=== PATIENT | male | born 1980 | race Caucasian/White ===

== ENCOUNTER → 2016-05-13 | Outpatient (CLI) | payer BC ==
--- NOTE | 2016-05-13 21:46 | PN ---
35-year-old male patient coming in for a compliancy check regarding his obstructive sleep apnea. He has severe MALISSA with an AHI of 38. He is very happy with the CPAP treatment. He is much improved and much more alert and awake during the day. No major hypersomnia and sleepiness for now. His Magnolia score is down to 6. Based on the compliance data on the CPAP machine, his CPAP use for more than 4 hours is around 50%. His average CPAP use is 4.4 hours per night and his leak factor is only at 10 L/min. His AHI while on treatment is down to 5.9. As such, there is some further room for improvement. Yet he is clinically better and he can advance his compliancy further. BP is 121/86, pulse 74, respirations 16, temperature 98.0, Magnolia at 6 and the saturation is at 96% on room air. GENERAL APPEARANCE: Calm, comfortable. HEENT: Short neck, crowding posterior pharynx. There is no goiter or neck mass. LUNGS: Clear to auscultation. HEART: Sounds are regular rate and rhythm. Normal S1, S2. ABDOMEN: Soft, nontender. No organomegaly. EXTREMITIES: No edema. No cyanosis, or clubbing. IMPRESSION: 1. Severe symptomatic obstructive sleep apnea with an AHI of 38, worse in a supine body position. The patient is on CPAP therapy at a pressure of 12 cm of water. 2. Hypersomnia, improving. 3. Severe nocturnal oxygen desaturation improved. 4. Obesity with a body mass index of 37. PLAN: 1. Encourage weight loss. 2. Encourage increasing CPAP compliance to an average of 5 to 6 hours per night if possible. 3. See me back in a year's time in follow-up.
== END | disposition home or self-care (01) ==
LOC: SLEEP 13:07
PROVIDERS: ATTEND Internal Medicine Critical Care Medicine
DX: G47.33 Obstructive sleep apnea (adult) (pediatric) (principal); G47.10 Hypersomnia, unspecified; E66.9 Obesity, unspecified; Z68.37 Body mass index [BMI] 37.0-37.9, adult

== ENCOUNTER → 2017-04-17 | Outpatient (CLI) | payer BC ==
--- NOTE | 2017-04-17 12:22 | CT ---
EXAMINATION TYPE: CT chest w con DATE OF EXAM: 04/17/2017 COMPARISON: 01/16/2016 and 07/17/2015 HISTORY: 36-year-old male Patient has no complaints at time of study. FOllow up study for known lung nodule. Lymphadenopathy. TECHNIQUE: Contiguous axial scanning of the chest after the administration of 100 mL of Omnipaque 300 . Coronal/sagittal reconstructions performed. CT DLP: 603.4mGycm. Automatic exposure control utilized for a dose reduction. FINDINGS: Heart normal size without pericardial effusion. Aorta normal caliber with conventional arch vessel branching anatomy. Redemonstrated subcarinal lymph node. This is currently measured on coronal series and compared to th e patient's prior exams. It measures 3.5 x 2.0 cm, coronal image 80 versus 3.5 x 1.9 cm on 01/16/2016 and 3.5 x 2.3 cm on 07/17/2015. Otherwise, no thoracic lymphadenopathy seen. Focal tree-in-bud infiltrate at the right middle lobe remains unchanged from 07/17/2015. No consolidat ion or pleural effusion. Visualized upper abdomen redemonstrates hypodense lesions within the left kidney stable to minimally larger measuring 3.6 cm versus 3.2 cm on 07/17/2015 most suggestive of cysts. Bones: No osseous destructive process. IMPRESSION: 1. Stable 3.5 x 2.0 cm subcarinal lymph node as compared to 07/17/2015. This suggests a benign, probab ly chronic post inflammatory etiology. 2. Stable focal tree-in-bud infiltrate right middle lobe probably chronic distal airway impaction. 3. No acute pulmonary process.
== END | disposition home or self-care (01) ==
LOC: RADCTMAIN 10:50
PROVIDERS: ATTEND Internal Medicine
DX: R59.0 Localized enlarged lymph nodes (principal); R91.8 Other nonspecific abnormal finding of lung field
CPT/HCPCS: 71260; Q9967

== ENCOUNTER → 2017-06-16 | Outpatient (CLI) | payer BC ==
--- NOTE | 2017-06-16 18:02 | PN ---
PROGRESS NOTE Brooks is 36 seeing me in followup regarding MALISSA treatment. The patient has severe MALISSA with an AHI of 38 and the patient is currently on CPAP pressure of 12 cm of water. He is coming in for annual check. He is utilizing his CPAP without any interruption. He is very compliant and is using his CPAP 24 out of 30 days for more than 4 hours. He has been averaging around 5.8 hours of CPAP use per night. His AHI while on treatment is down to 2.6. Leak factor is only at 13 L/minute. He has no complaints. His weight has been fluctuating although is up by around 18 pounds since his last evaluation. His treatment continues to be successful. His Russell Score is at 9. He is waking up refreshed and alert during the day. He has no specific complaints. He wants all of the supplies to be refilled and renewed. BP is 131/86, pulse 76, respirations 16, temp 98 saturation 93% on room air and weight is 284. Height is 5 feet 10 inches. General appearance, calm and comfortable. Head is atraumatic, normocephalic. Neck is short, supple. There is crowding of posterior pharynx. No goiter or neck masses. LUNGS: Clear to auscultation. Heart sounds regular rhythm. Normal S1, S2. No S3. No murmurs. Abdomen is soft, nontender. No organomegaly. EXTREMITIES: No edema. No cyanosis or clubbing. NEUROLOGIC: Alert and oriented x3. No focal neurological deficits. Psychiatric negative for anxiety or depression. IMPRESSION: 1. Severe obstructive sleep apnea, currently with an AHI of 38. Continues to be on CPAP with a pressure of 12 cm of water. 2. Obesity with interval weight gain. Currently he is weighing 284 with a BMI of 40.7. 3. Hypersomnia recovered. PLAN: 1. Renewal of the CPAP supplies. 2. Encourage weight loss. 3. Keep the same CPAP pressure as the treatment has remains successful despite his weight loss. See me back in a year's time in follow up or earlier if needed. MMODL / IJN: [id number] /
== END | disposition home or self-care (01) ==
LOC: SLEEP 15:12
PROVIDERS: ATTEND Internal Medicine Critical Care Medicine
DX: G47.33 Obstructive sleep apnea (adult) (pediatric) (principal); E66.9 Obesity, unspecified; G47.10 Hypersomnia, unspecified; Z68.41 Body mass index [BMI] 40.0-44.9, adult; Z99.89 Dependence on other enabling machines and devices

== ENCOUNTER → 2018-02-15 | Outpatient (CLI) | payer BC ==
--- NOTE | 2018-02-15 22:13 | CT ---
EXAMINATION TYPE: CT chest w con DATE OF EXAM: 02/15/2018 COMPARISON: Chest CT April 17, 2017 and older CTs back through July 17, 2015. HISTORY: Follow up for pulmonary nodule. CT DLP: 506.9 mGycm. Automated Exposure Control for Dose Reduction was Utilized. TECHNIQUE: CT scan of the thorax is performed following with IV Contrast, patient injected with 100m l mL of Isovue 300. FINDINGS: LUNGS: Stable tree in bud infiltrate right middle lobe there are axial image 37 not significantly barry nged from July 18, 2015 study. There is additional linear scarring redemonstrated inferior to this up to level of diaphragm. No new suspicious nodules or masses are present. There is no pleural effusi on or pneumothorax seen bilaterally. The tracheobronchial tree is patent. MEDIASTINUM: There are no new greater than 1 cm hilar or mediastinal lymph nodes. There is enlarged s ubcarinal lymph node measuring 1.8 x 1.5 cm axial image 28 stable or slightly less prominent from janene or exams. No cardiomegaly or pericardial effusion is seen. OTHER: Simple appearing cysts upper pole of the posterior left kidney are redemonstrated. Liver remai ns low dense suggesting fatty infiltration. IMPRESSION: Overall no significant change or progression from June 2015 study suggests postinflamma tory or benign etiology.
== END | disposition home or self-care (01) ==
LOC: RADCTMAIN 16:55
PROVIDERS: ATTEND Internal Medicine
DX: R91.1 Solitary pulmonary nodule (principal)
CPT/HCPCS: 71260; Q9967

== ENCOUNTER 2021-05-27 03:34 | Inpatient (IN) | payer BC ==
[2021-05-27] MEDS ORDERED: IPRATROPIUM-ALBUTEROL 3 ML NEB INHALATION STA ×2 (03:45→04:53)
--- NOTE | 2021-05-27 03:46 | ED ---
SOB HPI - General Chief Complaint: Shortness of Breath Stated Complaint: SOB Time Seen by Provider: 05/27/21 03:35 Source: patient, RN notes reviewed, old records reviewed Mode of arrival: ambulatory Limitations: no limitations - History of Present Illness Initial Comments: This is a 40-year-old male DF for evaluation. Patient does for evaluation of se jose luis shortness of breath significant shortness of breath especially with movement. Patient was recently told he had bronchitis and about a month ago patient did have coronavirus. Patient has not been complaining of any chest pain. Patient does have high blood pressure but is been off his medication for greater than a year 2 MD Complaint: shortness of breath, anxiety -: hour(s) (Significantly much worse tonight), week(s) Severity: moderate, severe Severity scale (1-10): 10 (Tonight became a 10) Consistency: constant Improves With: rest Worsens With: exertion, movement Known History Of: other (Hypertension) Context: recent URI (2 weeks ago told he has bronchitis), recent illness (Does have recent diagnosis of coronavirus) Associated Symptoms: cough Treatments Prior to Arrival: none - Related Data Previous Rx's Medication Instructions Recorded Losartan [Cozaar] 50 mg PO DAILY 30 Days tab 01/17/16 Omeprazole [PriLOSEC] 40 mg PO DAILY #60 capsule. 01/17/16 amLODIPine [Norvasc] 10 mg PO DAILY #30 tablet 01/17/16 Allergies Allergy/AdvReac Type Severity Reaction Status Date / Time No Known Allergies Allergy Verified 05/27/21 03:38 Review of Systems ROS Statement: Those systems with pertinent positive or pertinent negative responses have been documented in the HPI. ROS Other: All systems not noted in ROS Statement are negative. Past Medical History Past Medical History: GERD/Reflux, Hypertension Additional Past Medical History / Comment(s): lymph node enlargement in chest, kidney cyst, hiatal hernia History of Any Multi-Drug Resistant Organisms: MRSA Date of last positivie culture/infection: 2007 MDRO Source:: shouler armpit and leg Past Surgical History: Ear Surgery, Tonsillectomy Additional Past Surgical History / Comment(s): mastoid bone, pe tubes, right foot Past Anesthesia/Blood Transfusion Reactions: No Reported Reaction Past Psychological History: No Psychological Hx Reported Smoking Status: Former smoker Past Alcohol Use History: Occasional Past Drug Use History: None Reported - Past Family History Mother Family Medical History: Asthma, GERD/Reflux, Hypertension, Skin Disorder Additional Family Medical History / Comment(s): psoriasis,hiatal hernia,enviromental triggered asthma Father History Unknown: Yes Additional Family Medical History / Comment(s): good health General Exam - General Exam Comments Initial Comments: significant diaphoresis, tripod positioning General appearance: alert, in no apparent distress, anxious, in distress Head exam: Present: atraumatic, normocephalic, normal inspection Eye exam: Present: normal appearance, PERRL, EOMI. Absent: scleral icterus, conjunctival injection, periorbital swelling ENT exam: Present: normal exam, mucous membranes moist Neck exam: Present: normal inspection. Absent: tenderness, meningismus, lymphadenopathy Respiratory exam: Present: respiratory distress, rales, accessory muscle use, decreased breath sounds, prolonged expiratory. Absent: wheezes, rhonchi, stridor Cardiovascular Exam: Present: regular rate, normal rhythm, normal heart sounds. Absent: systolic murmur, diastolic murmur, rubs, gallop, clicks GI/Abdominal exam: Present: soft, normal bowel sounds. Absent: distended, tenderness, guarding, rebound, rigid Extremities exam: Present: normal inspection, full ROM, normal capillary refill. Absent: tenderness, pedal edema, joint swelling, calf tenderness Back exam: Present: normal inspection Neurological exam: Present: alert, oriented X3, CN II-XII intact Psychiatric exam: Present: normal affect, normal mood Skin exam: Present: warm, dry, intact, normal color. Absent: rash Course Vital Signs 05/27/21 05/27/21 05/27/21 03:35 03:38 04:23 Temperature 97.8 F Pulse Rate 64 126 H Respiratory 18 24 24 Rate Blood Pressure 178/120 O2 Sat by Pulse 99 99 Oximetry 05/27/21 05/27/21 05/27/21 04:25 04:32 04:42 Temperature Pulse Rate 128 H 131 H 99 Respiratory 24 24 Rate Blood Pressure 173/139 129/112 O2 Sat by Pulse 97 98 Oximetry 05/27/21 05/27/21 05/27/21 04:46 05:00 05:18 Temperature Pulse Rate 98 91 91 Respiratory 22 20 Rate Blood Pressure 129/107 107/85 O2 Sat by Pulse 99 97 Oximetry 05/27/21 05/27/21 05:25 05:58 Temperature Pulse Rate 91 89 Respiratory 20 Rate Blood Pressure 112/90 O2 Sat by Pulse 95 Oximetry - Reevaluation(s) Reevaluation #1: 05/27/21 04:10 Medical record is reviewed Reevaluation #2: 05/27/21 06:16 Patient borderline being placed on BiPAP to watch closely with blood pressure control abrasion patient has improved dramatically Reevaluation #3: 05/27/21 06:16 Patient feeling much improved currently Reevaluation #4: 05/27/21 06:16 Patient informed of results and questions answered - Consultations Consultation #1: Spoke with [facility] regarding admission and they are agreeable Medical Decision Making - Medical Decision Making 40-year-old male hypertensive emergency and significant shortness of breath. Patient is near placing on BiPAP but with blood pressure control her breathing t reatments symptoms are significantly dramatically improved. Patient be admitted for cardiology observation blood pressure treatment echo and further evaluation - Lab Data Result diagrams: 05/27/21 04:17 05/27/21 04:17 Lab Results 05/27/21 05/27/21 05/27/21 Range/Units 04:17 04:17 04:17 WBC 7.3 (3.8-10.6) k/uL RBC 5.58 (4.30-5.90) m/uL Hgb 16.3 (13.0-17.5) gm/dL Hct 51.2 (39.0-53.0) % MCV 91.8 (80.0-100.0) fL MCH 29.3 (25.0-35.0) pg MCHC 31.9 (31.0-37.0) g/dL RDW 14.8 (11.5-15.5) % Plt Count 219 (150-450) k/uL MPV 9.5 Neutrophils % 68 % Lymphocytes % 23 % Monocytes % 5 % Eosinophils % 2 % Basophils % 1 % Neutrophils # 5.0 (1.3-7.7) k/uL Lymphocytes # 1.7 (1.0-4.8) k/uL Monocytes # 0.3 (0-1.0) k/uL Eosinophils # 0.2 (0-0.7) k/uL Basophils # 0.0 (0-0.2) k/uL Hypochromasia Slight PT 11.4 (9.0-12.0) sec INR 1.1 (<1.2) APTT 23.0 (22.0-30.0) sec Sodium 139 (137-145) mmol/L Potassium 4.5 (3.5-5.1) mmol/L Chloride 106 (98-107) mmol/L Carbon Dioxide 23 (22-30) mmol/L Anion Gap 10 mmol/L BUN 21 H (9-20) mg/dL Creatinine 1.27 H (0.66-1.25) mg/dL Est GFR (CKD-EPI)AfAm 81 (>60 ml/min/1.73 sqM) Est GFR (CKD-EPI)NonAf 70 (>60 ml/min/1.73 sqM) Glucose 136 H (74-99) mg/dL Plasma Lactic Acid Param (0.7-2.0) mmol/L Calcium 9.6 (8.4-10.2) mg/dL Magnesium 2.0 (1.6-2.3) mg/dL Total Bilirubin 1.3 (0.2-1.3) mg/dL AST 26 (17-59) U/L ALT 28 (4-49) U/L Alkaline Phosphatase 66 (38-126) U/L Troponin I (0.000-0.034) ng/mL NT-Pro-B Natriuret Pep pg/mL Total Protein 6.7 (6.3-8.2) g/dL Albumin 4.2 (3.5-5.0) g/dL Serum Alcohol <10 mg/dL 05/27/21 05/27/21 05/27/21 Range/Units 04:17 04:17 04:17 WBC (3.8-10.6) k/uL RBC (4.30-5.90) m/uL Hgb (13.0-17.5) gm/dL Hct (39.0-53.0) % MCV (80.0-100.0) fL MCH (25.0-35.0) pg MCHC (31.0-37.0) g/dL RDW (11.5-15.5) % Plt Count (150-450) k/uL MPV Neutrophils % % Lymphocytes % % Monocytes % % Eosinophils % % Basophils % % Neutrophils # (1.3-7.7) k/uL Lymphocytes # (1.0-4.8) k/uL Monocytes # (0-1.0) k/uL Eosinophils # (0-0.7) k/uL Basophils # (0-0.2) k/uL Hypochromasia PT (9.0-12.0) sec INR (<1.2) APTT (22.0-30.0) sec Sodium (137-145) mmol/L Potassium (3.5-5.1) mmol/L Chloride (98-107) mmol/L Carbon Dioxide (22-30) mmol/L Anion Gap mmol/L BUN (9-20) mg/dL Creatinine (0.66-1.25) mg/dL Est GFR (CKD-EPI)AfAm (>60 ml/min/1.73 sqM) Est GFR (CKD-EPI)NonAf (>60 ml/min/1.73 sqM) Glucose (74-99) mg/dL Plasma Lactic Acid Param 1.8 (0.7-2.0) mmol/L Calcium (8.4-10.2) mg/dL Magnesium (1.6-2.3) mg/dL Total Bilirubin (0.2-1.3) mg/dL AST (17-59) U/L ALT (4-49) U/L Alkaline Phosphatase (38-126) U/L Troponin I 0.033 (0.000-0.034) ng/mL NT-Pro-B Natriuret Pep 3430 pg/mL Total Protein (6.3-8.2) g/dL Albumin (3.5-5.0) g/dL Serum Alcohol mg/dL - EKG Data -: EKG Interpreted by Me (EKG sinus tachycardia 129 UT 157 QRS is having QTC 410) - Radiology Data Radiology results: report reviewed (Chest x-ray CT [facility] pelvis does show significant sent significant signs of CHF), image reviewed Critical Care Time Critical Care Time: Yes Total Critical Care Time: 31 Disposition Clinical Impression: Acute pulmonary edema, Congestive heart failure Disposition: ADMITTED IP TO THIS HOSP Condition: Fair Is patient prescribed a controlled substance at d/c from ED?: No Referrals: None,Stated [Primary Care Provider] - 1-2 days
[2021-05-27] MEDS ORDERED: ENALAPRILAT 1.25 MG/ML 1 ML VIAL IVP STA (04:27)
[2021-05-27] MEDS ORDERED: LABETALOL 5 MG/ML VIAL MDV IVP STA (04:27)
[2021-05-27 04:29] LABS: Basophils % (A) 1 %; Eosinophils # (A) 0.2 k/uL (0-0.7); Eosinophils % (A) 2 %; HCT 51.2 % (39.0-53.0); HGB 16.3 gm/dL (13.0-17.5); Hypochromasia Slight; Lymphocytes # (A) 1.7 k/uL (1.0-4.8); Lymphocytes % (A) 23 %; MCH 29.3 pg (25.0-35.0); MCHC 31.9 g/dL (31.0-37.0); MCV 91.8 fL (80.0-100.0); Mean Platelet Volume 9.5; Monocytes # (A) 0.3 k/uL (0-1.0); Monocytes % (A) 5 %; Neutrophils % (A) 68 %; Platelet Count 219 k/uL (150-450); RBC 5.58 m/uL (4.30-5.90); RDW 14.8 % (11.5-15.5); WBC 7.3 k/uL (3.8-10.6)
[2021-05-27 04:37] LABS: Potassium 4.5 mmol/L (3.5-5.1)
[2021-05-27 04:38] LABS: ALT 28 U/L (4-49); AST 26 U/L (17-59); African American GFR (CKD) 81 (>60 ml/min/1.73 sqM); Albumin 4.2 g/dL (3.5-5.0); Alcohol <10 mg/dL; Alkaline Phosphatase 66 U/L (38-126); Anion Gap 10 mmol/L; Blood Urea Nitrogen 21 mg/dL (9-20); Calcium 9.6 mg/dL (8.4-10.2); Carbon Dioxide 23 mmol/L (22-30); Chloride 106 mmol/L (98-107); Glucose 136 mg/dL (74-99); Non-African American GFR(CKD) 70 (>60 ml/min/1.73 sqM); Sodium 139 mmol/L (137-145); Total Bilirubin 1.3 mg/dL (0.2-1.3); Total Protein 6.7 g/dL (6.3-8.2)
[2021-05-27 04:41] LABS: INR 1.1 (<1.2)
[2021-05-27 04:42] LABS: Prothrombin Time 11.4 sec (9.0-12.0)
--- NOTE | 2021-05-27 04:46 | XR ---
EXAMINATION TYPE: XR chest 1V portable DATE OF EXAM: 05/27/2021 COMPARISON: 03/18/2019 HISTORY: Short of breath TECHNIQUE: FINDINGS: Single view Heart is enlarged. Lungs are clear. Diaphragm is normal. There are chest leads. There is no pleural e ffusion. IMPRESSION: There is cardiomegaly which appears new compared to old exam. No heart failure seen.
[2021-05-27] MEDS ORDERED: SODIUM CHLORIDE 0.9% 1,000 ML IV STA ×2 (04:59→06:08)
--- NOTE | 2021-05-27 05:23 | CT ---
EXAMINATION TYPE: CT angio chest DATE OF EXAM: 05/27/2021 COMPARISON: 01/16/2016 HISTORY: sob CT DLP: 2724 mGycm Automated exposure control for dose reduction was used. CONTRAST: Performed with IV Contrast, patient injected with 100 mL of Isovue 370. There are Three-D postprocessed images. There are bilateral pleural effusions. Heart is enlarged. There is some atelectasis at the lung bases . Thoracic aorta appears intact. There is no aneurysm or dissection. There is normal contrast opacifica tion of the pulmonary arteries. There are no filling defects. There are no hilar masses. There are ca lcified subcarinal lymph nodes. The thoracic spine is intact. There is no compression fracture. Sternum is intact. IMPRESSION: No evidence of pulmonary embolism. Moderate bilateral pleural effusions appear new compared to old ex am. There is small pericardial effusion that is new compared to old exam. Heart increased in size com pared to old exam. Old granulomatous disease. There is reflux of contrast into the inferior vena cava that is suggestive of congestive heart failure.
--- NOTE | 2021-05-27 05:33 | CT ---
EXAMINATION TYPE: CT abdomen pelvis w con DATE OF EXAM: 05/27/2021 COMPARISON: 07/10/2015 HISTORY: sob CT DLP: 2724 mGycm Automated exposure control for dose reduction was used. CONTRAST: Performed with IV Contrast, patient injected with 100 mL of Isovue 370. Images obtained from the diaphragm to the floor the pelvis with IV contrast. There is mild to moderate bilateral pleural effusions. There is some contrast reflux into the inferio r vena cava suggestive of some heart failure. Heart appears enlarged. There is small pericardial effu fide. Liver shows no focal defect. Gallbladder is intact. Spleen is intact. There is no pancreatic ma ss. The stomach is intact. There is no adrenal mass. Kidneys show satisfactory contrast opacification. There is no hydronephrosi s. There is conglomeration of cysts on the posterior left kidney and the largest measures 3 cm. There is no retroperitoneal adenopathy. Ureters are not dilated. There is some low density free fluid in t he pelvis. Urinary bladder is almost empty. There is no inguinal hernia. There is no free fluid in th e pelvis. There is some mild free fluid in the paracolic gutters. There is no mesenteric edema. There is no free air. There is no sign of a bowel obstruction. There i s no sign of thickened appendix. There is subcutaneous edema around the abdomen. The lumbar vertebra have normal alignment. Posterior element are intact. There is no compression frac ture. Bony pelvis is intact. IMPRESSION: There is mild ascites. This could be due to some chronic congestive heart failure. No sign of thicken ed appendix. Bilateral pleural effusions. Fluid appears new compared to old exams
[2021-05-27] MEDS: SODIUM CHLORIDE 0.9% 500 ML 500 ML IV STA ×2 (05:34→06:08)
[2021-05-27] MEDS ORDERED: SODIUM CHLORIDE 0.9% 1,000 ML IV SCH (06:15)
[2021-05-27] MEDS ORDERED: FUROSEMIDE 10 MG/ML 4 ML VIAL IV SCH (06:15)
[2021-05-27] MEDS ORDERED: METOPROLOL TARTRATE 25 MG TAB PO SCH (09:00)
[2021-05-27] MEDS: SACUBITRIL/VALSARTAN 24 MG-26 MG TABLET PO SCH ×2 (09:42→19:53)
--- NOTE | 2021-05-27 11:00 | ECHOF ---
Referral Reason:Heart Failure MEASUREMENTS -------- HEIGHT: 182.9 cm WEIGHT: 108.9 kg BP: RVIDd: 3.8 cm (< 3.3) IVSd: 1.3 cm (0.6 - 1.1) LVIDd: 5.4 cm (3.9 - 5.3) LVPWd: 2.3 cm (0.6 - 1.1) IVSs: 1.7 cm LVIDs: 5.0 cm LVPWs: 2.0 cm LA Diam: 5.3 cm (2.7 - 3.8) Ao Diam: 3.3 cm (2.0 - 3.7) AV Cusp: 1.6 cm (1.5 - 2.6) LA Diam: 4.9 cm (2.7 - 3.8) MV EXCURSION: 16.898 mm (> 18.000) MV EF SLOPE: 70 mm/s (70 - 150) EPSS: 1.5 cm RAP: 5.00 mmHg RVSP: 40.09 mmHg FINDINGS -------- Sinus rhythm. This was a technically adequate study. This was a techncally difficult study with suboptimal views, , Definity utilized for enhancement of images. The left ventricle is moderately dilated. There is severe global hypokinesis of LV . Overall left ventricular systolic function is severely impaired with, an EF < 20%. The right ventricle is normal in size. The left atrium is markedly dilated. The right atrial size is normal. xx ml of Lumason was utilized for enhancement of images. The aortic valve is trileaflet, and appears structurally normal. No aortic stenosis or regurgitation. Mild mitral regurgitation is present. [id number] tricuspid regurgitation present. There is mild pulmonary hypertension. The right ventricular systolic pressure, as measured by Doppler, is 40.09mmHg. There is no pulmonic regurgitation present. There is a small, generalized pericardial effusion present. CONCLUSIONS -------- 1. This was a techncally difficult study with suboptimal views, , Definity utilized for enhancement o f images. 2. The left ventricle is moderately dilated. 3. There is severe global hypokinesis of LV . 4. Overall left ventricular systolic function is severely impaired with, an EF < 20%. 5. The right ventricle is normal in size. 6. The left atrium is markedly dilated. 7. The right atrial size is normal. 8. xx ml of Lumason was utilized for enhancement of images. 9. The aortic valve is trileaflet, and appears structurally normal. No aortic stenosis or regurgitati on. 10. Mild mitral regurgitation is present. 11. Ixsb-[id number] tricuspid regurgitation present. 12. There is mild pulmonary hypertension. 13. The right ventricular systolic pressure, as measured by Doppler, is 40.09mmHg. 14. There is no pulmonic regurgitation present. 15. There is a small, generalized pericardial effusion present. HEAD OF TRANSPORT LOGISTICS: Shy Mead RDCS
[2021-05-27 11:23] VITALS: BMI 34.9
--- NOTE | 2021-05-27 12:16 | P.HPIM ---
History of Present Illness Patient is a pleasant 40-year-old male came in with compensative shortness of breath orthopnea and paroxysmal nocturnal dyspnea of which are going on for about a month. Patient shortness of breath progressively worsened. Patient had COVID-19 infection which is predominantly GI symptoms in mid February. Patient did not require hospital physician at the time. Patient is not vaccinated for COVID-19. Patient did have history of alcohol abuse in the past which he quit about any ago patient used to drink a 12 pack beer every day for many years. Does have family history of coronary artery disease, premature coronary artery disease in father and second degree relatives had coronary artery disease history as well. Patient baseline creatinine within normal limits present creatinine is 1.27. Patient was given Lasix, with a complete resolution of his shortness of breath. Patient had multiple imaging studies including CT angios the chest abdominal pelvic CT in ER which is significant for pulmonary edema and ascites. Echo was obtained today which showed EF of less than 20% with global hypokinesis. Patient also having cough without any sputum production REVIEW OF SYSTEMS: CONSTITUTIONAL: No fever, no malaise, no fatigue. HEENT: No recent visual problems or hearing problems. Denied any sore throat. CARDIOVASCULAR: No chest pain, no palpitations, no syncope. PULMONARY: , no hemoptysis. GASTROINTESTINAL: No diarrhea, no nausea, no vomiting, no abdominal pain. NEUROLOGICAL: No headaches, no weakness, no numbness. HEMATOLOGICAL: Denies any bleeding or petechiae. GENITOURINARY: Denies any burning micturition, frequency, or urgency. MUSCULOSKELETAL/RHEUMATOLOGICAL: Denies any joint pain, swelling, or any muscle pain. ENDOCRINE: Denies any polyuria or polydipsia. The rest of the 14-point review of systems is negative. PHYSICAL EXAMINATION: GENERAL: The patient is alert and oriented x3, not in any acute distress. Well developed, well nourished. HEENT: Pupils are round and equally reacting to light. EOMI. No scleral icterus. No conjunctival pallor. Normocephalic, atraumatic. No pharyngeal erythema. No thyromegaly. CARDIOVASCULAR: S1 and S2 present. No murmurs, rubs, or gallops. PULMONARY: Chest is clear to auscultation, no wheezing or crackles. ABDOMEN: Soft, nontender, nondistended, normoactive bowel sounds. No palpable organomegaly. MUSCULOSKELETAL: No joint swelling or deformity. EXTREMITIES: No cyanosis, clubbing, or pedal edema. NEUROLOGICAL: Gross neurological examination did not reveal any focal deficits. SKIN: No rashes. Assessment and plan -Congestive heart failure, new onset heart failure probably viral myocarditis and cardiomyopathy: Patient was given Lasix with improvement in symptoms patient was started on Entresto, Lasix was switched to oral patient has mildly elevated creatinine of 1.27 basic volley profile will be repeated again tomorrow monitor his input and output. Cardiology evaluated the patient. -Ascites secondary to congestive heart failure -Alcohol abuse history in the past he quit drinking alcohol -Acute renal failure probably prerenal azotemia from congestive heart failure and volume over load. This is expected to improve with Lasix -Gases visual reflux disease DVT prophylaxis: Subcutaneous heparin Past Medical History Past Medical History: GERD/Reflux, Hypertension Additional Past Medical History / Comment(s): lymph node enlargement in chest, kidney cyst, hiatal hernia History of Any Multi-Drug Resistant Organisms: MRSA Date of last positivie culture/infection: 2007 MDRO Source:: shouler armpit and leg Past Surgical History: Ear Surgery, Tonsillectomy Additional Past Surgical History / Comment(s): mastoid bone, pe tubes, right alecia t Past Anesthesia/Blood Transfusion Reactions: No Reported Reaction Past Psychological History: No Psychological Hx Reported Smoking Status: Never smoker Past Alcohol Use History: Occasional Past Drug Use History: None Reported - Past Family History Mother Family Medical History: Asthma, GERD/Reflux, Hypertension, Skin Disorder Additional Family Medical History / Comment(s): psoriasis,hiatal hernia,enviromental triggered asthma Father History Unknown: Yes Additional Family Medical History / Comment(s): good health Medications and Allergies Home Medications Medication Instructions Recorded Confirmed Type Sacubitril/Valsartan [Entresto 24 1 each PO BID #60 tablet 05/27/21 Rx mg-26 mg Tablet] Allergies Allergy/AdvReac Type Severity Reaction Status Date / Time No Known Allergies Allergy Verified 05/27/21 06:42 Physical Exam Vitals: Vital Signs Temp Pulse Pulse Resp BP BP Pulse Ox 05/27/21 08:00 92 18 138/105 97 05/27/21 07:12 92 18 114/72 05/27/21 06:59 92 18 114/97 98 02/28/22 05:58 89 20 112/90 95 05/27/21 05:25 91 05/27/21 05:18 91 05/27/21 05:00 91 20 107/85 97 05/27/21 04:46 98 22 129/107 99 05/27/21 04:42 99 24 129/112 98 05/27/21 04:32 131 H 05/27/21 04:25 128 H 24 173/139 97 05/27/21 04:23 24 05/27/21 03:38 126 H 24 99 05/27/21 03:35 97.8 F 64 18 178/120 99 Intake and Output 05/26/21 05/27/21 05/27/21 22:59 06:59 14:59 Other: # Voids 2 Weight 108.862 kg 116.9 kg Results CBC & Chem 7: 05/27/21 04:17 05/27/21 04:17 Labs: Abnormal Lab Results - Last 24 Hours (Table) 05/27/21 Range/Units 04:17 BUN 21 H (9-20) mg/dL Creatinine 1.27 H (0.66-1.25) mg/dL Glucose 136 H (74-99) mg/dL Thrombosis Risk Factor Assmnt - Choose All That Apply Any of the Below Risk Factors Present?: No Other Risk Factors: No Thrombosis Risk Factor Assessment Level: Very Low Risk
--- NOTE | 2021-05-27 12:30 | P.CRDCN ---
History of Present Illness Consult date: 05/27/21 History of present illness: HISTORY OF PRESENT ILLNESS: This is a 40-year-old male with a past medical history significant for hypertension and former alcohol use (quit about 3 or 4 years ago). 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 He was seen by Dr. Ash back in 2015. We have been asked to see the patient in consultation for CHF. Patient examined at the bedside. Patient presented to the hospital with a chief complaint of SOB. Patient states he had covid about 3 weeks ago. He has been feeling SOB since about 4 days prior to being diagnosed with Covid. Patient was found to be in CHF and was started on IV lasix. He denies chest pain or pressure. The patient reports a history of hypertension and states he was prescribed losartan and amlodipine an outpatient basis but has not been taking it up for approximately 3 weeks as he ran out of medications and is in the process of changing his primary care physician. * EKG reveals sinus mechanism with no signs of acute ischemia * Chest xray cardiomegaly which appears appears new compared to old exam. No heart failure seen. * Laboratory data: WBC 7.3. Hemoglobin 16.3. Platelet count 219. Sodium 139. Potassium 4.5. BUN 21. Creatinine 1.27. Troponin negative 3. ProBNP 3430. TSH 2.280. * Current home cardiac medications include losartan and amlodipine, unknown doses, patient has not been taking medications for at least 3 weeks * Echocardiogram completed revealing ejection fraction less than 20%, mild mitral regurgitation, [id number] tricuspid regurgitation, mild pulmonary hypertension, small generalized pericardial effusion. * Patient had an echocardiogram completed in 2016 revealing normal ejection fraction of 55-60% * Chest CTA: Negative for pulmonary embolism. Moderate bilateral pleural effusions. * Patient underwent cardiac catheterization and December 2015 revealing normal coronary arteries. REVIEW OF SYSTEMS: At the time of my exam: CONSTITUTIONAL: Denies fever or chills. HEENT: Denies blurred vision, vision changes, or eye pain. Denies hemoptysis CARDIOVASCULAR: Denies chest pain. + orthopnea. + PND. Denies palpitations RESPIRATORY: + shortness of breath. GASTROINTESTINAL: Denies abdominal pain. Denies nausea or vomiting. HEMATOLOGIC: Denies bleeding disorders. GENITOURINARY: Denies any blood in urine. SKIN: Denies pruitis. Denies rash. PHYSICAL EXAM: VITAL SIGNS: Reviewed. GENERAL: Well-developed in no acute distress. HEENT: Head is normocephalic. Pupils are equal, round. Sclerae anicteric. Mucous membranes of the mouth are moist. Neck supple. No JVD or thyromegaly LUNGS: Respirations even and unlabored. Lungs diminished with bibasilar crackles HEART: Regular rate and rhythm. S1 and S2 heard. ABDOMEN: Soft. Nondistended. Nontender. EXTREMITIES: Normal range of motion. No clubbing or cyanosis. Peripheral pulses intact. No lower extremity edema NEUROLOGIC: Awake and alert. Oriented x 3. ASSESSMENT: Shortness of breath Recent diagnosis of Covid New onset cardiomyopathy, ejection fraction less than 20% Moderate bilateral pleural effusions Acute kidney injury Hypertension Medication noncompliance PLAN: 2D echo obtained and reviewed Discontinue IV lasix Begin oral lasix 40mg PO daily Begin metoprolol 12.5mg BID Begin Entresto 24-26mg BID. Case management consulted for coverage Further recommendations pending patient course Nurse practitioner note has been reviewed by physician. Signing provider agrees with the documented findings, assessment, and plan of care. Past Medical History Past Medical History: GERD/Reflux, Hypertension Additional Past Medical History / Comment(s): lymph node enlargement in chest, kidney cyst, hiatal hernia History of Any Multi-Drug Resistant Organisms: MRSA Date of last positivie culture/infection: 2007 MDRO Source:: shouler armpit and leg Past Surgical History: Ear Surgery, Tonsillectomy Additional Past Surgical History / Comment(s): mastoid bone, pe tubes, right f oot Past Anesthesia/Blood Transfusion Reactions: No Reported Reaction Past Psychological History: No Psychological Hx Reported Smoking Status: Never smoker Past Alcohol Use History: Occasional Past Drug Use History: None Reported - Past Family History Mother Family Medical History: Asthma, GERD/Reflux, Hypertension, Skin Disorder Additional Family Medical History / Comment(s): psoriasis,hiatal hernia,enviromental triggered asthma Father History Unknown: Yes Additional Family Medical History / Comment(s): good health Medications and Allergies Home Medications Medication Instructions Recorded Confirmed Type Sacubitril/Valsartan [Entresto 24 1 each PO BID #60 tablet 05/27/21 Rx mg-26 mg Tablet] Allergies Allergy/AdvReac Type Severity Reaction Status Date / Time No Known Allergies Allergy Verified 05/27/21 06:42 Physical Exam Vitals: Vital Signs Temp Pulse Pulse Resp BP BP Pulse Ox 05/27/21 08:00 92 18 138/105 97 05/27/21 07:12 92 18 114/72 05/27/21 06:59 92 18 114/97 98 05/27/21 05:58 89 20 112/90 95 05/27/21 05:25 91 05/27/21 05:18 91 05/27/21 05:00 91 20 107/85 97 05/27/21 04:46 98 22 129/107 99 05/27/21 04:42 99 24 129/112 98 05/27/21 04:32 131 H 05/27/21 04:25 128 H 24 173/139 97 05/27/21 04:23 24 05/27/21 03:38 126 H 24 99 05/27/21 03:35 97.8 F 64 18 178/120 99 Intake and Output 05/26/21 05/27/21 05/27/21 22:59 06:59 14:59 Other: # Voids 2 Weight 108.862 kg 116.9 kg Results 05/27/21 04:17 05/27/21 04:17 Cardiac Enzymes 05/27/21 05/27/21 05/27/21 Range/Units 04:17 04:17 07:30 AST 26 (17-59) U/L Troponin I 0.033 0.033 (0.000-0.034) ng/mL 05/27/21 Range/Units 09:46 AST (17-59) U/L Troponin I 0.028 (0.000-0.034) ng/mL Coagulation 05/27/21 Range/Units 04:17 PT 11.4 (9.0-12.0) sec APTT 23.0 (22.0-30.0) sec CBC 05/27/21 Range/Units 04:17 WBC 7.3 (3.8-10.6) k/uL RBC 5.58 (4.30-5.90) m/uL Hgb 16.3 (13.0-17.5) gm/dL Hct 51.2 (39.0-53.0) % Plt Count 219 (150-450) k/uL Comprehensive Metabolic Panel 05/27/21 Range/Units 04:17 Sodium 139 (137-145) mmol/L Potassium 4.5 (3.5-5.1) mmol/L Chloride 106 (98-107) mmol/L Carbon Dioxide 23 (22-30) mmol/L BUN 21 H (9-20) mg/dL Creatinine 1.27 H (0.66-1.25) mg/dL Glucose 136 H (74-99) mg/dL Calcium 9.6 (8.4-10.2) mg/dL AST 26 (17-59) U/L ALT 28 (4-49) U/L Alkaline Phosphatase 66 (38-126) U/L Total Protein 6.7 (6.3-8.2) g/dL Albumin 4.2 (3.5-5.0) g/dL Current Medications Generic Name Dose Route Start Last Admin Trade Name Freq PRN Reason Stop Dose Admin Furosemide 40 mg 05/28/21 09:00 Furosemide 40 Mg Tab PO DAILY SANDEEP Sodium Chloride 1,000 mls @ 20 mls/hr 05/27/21 06:08 05/27/21 06:10 Saline 0.9% IV 05/28/21 06:07 20 mls/hr .Q24H STA Administration Metoprolol Tartrate 12.5 mg 05/27/21 21:00 Metoprolol Tartrate 12.5 Mg Tab PO BID SANDEEP Sacubitril/Valsartan 1 each 05/27/21 09:15 05/27/21 09:42 Sacubitril/Valsartan 24 Mg-26 Mg Tablet PO 1 each BID SANDEEP Administration Intake and Output 05/26/21 05/27/21 05/27/21 22:59 06:59 14:59 Other: # Voids 2 Weight 108.862 kg 116.9 kg Patient Weight 05/28/21 06:59 Weight 116.9 kg 05/27/21 04:17 05/27/21 04:17
[2021-05-27 15:47] LABS: Chol/HDL Ratio 4.12 Ratio; LDL Cholesterol,Calculated 90.9 mg/dL (0.0-131.0); VLDL Calculation 16.56 mg/dL (5.00-40.00)
[2021-05-27] MEDS: METOPROLOL TARTRATE 12.5 MG TAB PO SCH (19:52)
[2021-05-28 08:38] LABS: African American GFR (CKD) >90 (>60 ml/min/1.73 sqM); Anion Gap 7 mmol/L; Blood Urea Nitrogen 17 mg/dL (9-20); Calcium 8.5 mg/dL (8.4-10.2); Carbon Dioxide 23 mmol/L (22-30); Chloride 105 mmol/L (98-107); Glucose 130 mg/dL (74-99); Magnesium 1.9 mg/dL (1.6-2.3); Non-African American GFR(CKD) 82 (>60 ml/min/1.73 sqM); Sodium 135 mmol/L (137-145)
[2021-05-28] MEDS: SACUBITRIL/VALSARTAN 24 MG-26 MG TABLET PO SCH ×2 (08:40→20:06)
[2021-05-28] MEDS: METOPROLOL TARTRATE 12.5 MG TAB PO SCH (08:40)
[2021-05-28] MEDS: FUROSEMIDE 40 MG TAB PO SCH (08:40)
[2021-05-28] MEDS ORDERED: FUROSEMIDE 10 MG/ML 4 ML VIAL IV SCH (09:00)
--- NOTE | 2021-05-28 13:08 | P.PN ---
<Tiffanie Moore - Last Filed: 05/28/21 13:08> Subjective Progress Note Date: 05/28/21 HISTORY OF PRESENT ILLNESS: This is a 40-year-old male with a past medical history significant for hypertension and former alcohol use (quit about 3 or 4 years ago). Patient does not follow with a lead burner. He was seen by Dr. Ash back in 2015. We have been asked to see the patient in consultation for CHF. Patient examined at the bedside. Patient presented to the hospital with a chief complaint of SOB. Patient states he had covid about 3 weeks ago. He has been feeling SOB since about 4 days prior to being diagnosed with Covid. Patient was found to be in CHF and was started on IV lasix. He denies chest pain or pressure. The patient reports a history of hypertension and states he was prescribed losartan and amlodipine an outpatient basis but has not been taking it up for approximately 3 weeks as he ran out of medications and is in the process of changing his primary care physician. * EKG reveals sinus mechanism with no signs of acute ischemia * Chest xray cardiomegaly which appears appears new compared to old exam. No heart failure seen. * Laboratory data: WBC 7.3. Hemoglobin 16.3. Platelet count 219. Sodium 139. Potassium 4.5. BUN 21. Creatinine 1.27. Troponin negative 3. ProBNP 3430. TSH 2.280. * Current home cardiac medications include losartan and amlodipine, unknown doses, patient has not been taking medications for at least 3 weeks * Echocardiogram completed revealing ejection fraction less than 20%, mild mitral regurgitation, [id number] tricuspid regurgitation, mild pulmonary hypertension, small generalized pericardial effusion. * Patient had an echocardiogram completed in 2016 revealing normal ejection fraction of 55-60% * Chest CTA: Negative for pulmonary embolism. Moderate bilateral pleural effusions. * Patient underwent cardiac catheterization and December 2015 revealing normal coronary arteries. 05/28/2021 Patient examined this morning at the bedside. Patient denies chest pain or pressure. He reports improvement in his shortness of breath. Blood pressure 136/92. Heart rate is in the 90s. He is on room air with oxygen saturations greater than 92%. PHYSICAL EXAM: VITAL SIGNS: Reviewed. GENERAL: Well-developed in no acute distress. HEENT: Head is normocephalic. Pupils are equal, round. Sclerae anicteric. Mucous membranes of the mouth are moist. Neck supple. No JVD or thyromegaly LUNGS: Respirations even and unlabored. Lungs diminished with bibasilar crackles HEART: Regular rate and rhythm. S1 and S2 heard. ABDOMEN: Soft. Nondistended. Nontender. EXTREMITIES: Normal range of motion. No clubbing or cyanosis. Peripheral pulses intact. No lower extremity edema NEUROLOGIC: Awake and alert. Oriented x 3. ASSESSMENT: Shortness of breath Recent diagnosis of Covid New onset cardiomyopathy, ejection fraction less than 20% Moderate bilateral pleural effusions Acute kidney injury Hypertension Medication noncompliance PLAN: Continue current cardiac medications Increase metoprolol tartrate 25 mg twice a day Continue to monitor blood pressure Will possibly add Aldactone tomorrow Further recommendations pending patient course Nurse practitioner note has been reviewed by physician. Signing provider agrees with the documented findings, assessment, and plan of care. Objective - Vital Signs Vital signs: Vital Signs Temp 97.6 F 05/28/21 08:00 Pulse 101 H 05/28/21 08:00 Resp 20 05/28/21 08:00 BP 136/92 05/28/21 08:00 Pulse Ox 98 05/28/21 08:00 Intake & Output 05/27/21 05/28/21 05/28/21 18:59 06:59 18:59 Intake Total 450 120 Balance 450 120 Weight 116.9 kg 115.1 kg Intake: Oral 450 120 Other: Voiding Method Toilet Urinal # Voids 5 2 1 - Labs CBC & Chem 7: 05/27/21 04:17 05/28/21 06:42 Labs: Abnormal Lab Results - Last 24 Hours (Table) 05/27/21 05/28/21 Range/Units 09:46 06:42 Sodium 135 L (137-145) mmol/L Glucose 130 H (74-99) mg/dL HDL Cholesterol 34.50 L (40.00-60.00) mg/dL <Aden Gonzalez - Last Filed: 05/28/21 14:08> Subjective Patient interviewed and examined by me. Data reviewed. Impression and plan formulated by me and discussed with nurse practitioner Nurse practitioner transcribed note on my behalf Objective - Vital Signs Vital signs: Vital Signs Temp 98.4 F 05/28/21 12:00 Pulse 100 05/28/21 12:00 Resp 18 05/28/21 12:00 BP 149/93 05/28/21 12:00 Pulse Ox 96 05/28/21 12:00 Intake & Output 05/27/21 05/28/21 05/28/21 18:59 06:59 18:59 Intake Total 450 260 Balance 450 260 Weight 116.9 kg 115.1 kg Intake: Oral 450 260 Other: Voiding Method Toilet Urinal # Voids 5 2 1 - Labs CBC & Chem 7: 05/27/21 04:17 05/28/21 06:42 Labs: Abnormal Lab Results - Last 24 Hours (Table) 05/27/21 05/28/21 Range/Units 09:46 06:42 Sodium 135 L (137-145) mmol/L Glucose 130 H (74-99) mg/dL HDL Cholesterol 34.50 L (40.00-60.00) mg/dL
--- NOTE | 2021-05-28 14:22 | P.PN ---
Subjective Progress Note Date: 05/28/21 Patient is a pleasant 40-year-old male came in with compensative shortness of breath orthopnea and paroxysmal nocturnal dyspnea of which are going on for about a month. Patient shortness of breath progressively worsened. Patient had COVID-19 infection which is predominantly GI symptoms in mid February. Patient did not require hospital physician at the time. Patient is not vaccinated for COVID-19. Patient did have history of alcohol abuse in the past which he quit about any ago patient used to drink a 12 pack beer every day for many years. Does have family history of coronary artery disease, premature coronary artery disease in father and second degree relatives had coronary artery disease his tory as well. Patient baseline creatinine within normal limits present creatinine is 1.27. Patient was given Lasix, with a complete resolution of his shortness of breath. Patient had multiple imaging studies including CT angios the chest abdominal pelvic CT in ER which is significant for pulmonary edema and ascites. Echo was obtained today which showed EF of less than 20% with global hypokinesis. Patient also having cough without any sputum production 05/28/2021 Patient evaluated today, no acute events over night. Stable on current medications, entresto, lasix, and metoprolol. Echocardiogram shows an EF of <20% with severe global hypokinesis of left ventricle, mild to moderate tricuspid regurgitation, pulmonary hypertension, small generalized pericardial effusion present. Patient will be monitored overnight by cardiology with further medication adjustments as needed. Currently patient denies any chest pain, chest pressure, palpitations. Denies any cough or shortness of breath. Denies any dizziness or lightheadedness. Most recent echo was in 2016. Vitals stable today. Sodium 135, magnesium 1.9. Review of Systems Constitutional: Denied any fatigue denied any fever. Cardio vascular: denied any chest pain, palpitations Gastrointestinal: denied any nausea, vomiting, diarrhea Pulmonary: Denied any shortness of breath cough Neurologic denied any new focal deficits All inpatient medications were reviewed and appropriate changes in these medications as dictated in the interval history and assessment and plan. PHYSICAL EXAMINATION: GENERAL: The patient is alert and oriented x3, not in any acute distress. Well developed, well nourished. HEENT: Pupils are round and equally reacting to light. EOMI. No scleral icterus. No conjunctival pallor. Normocephalic, atraumatic. No pharyngeal erythema. No thyromegaly. CARDIOVASCULAR: S1 and S2 present. No murmurs, rubs, or gallops. PULMONARY: Chest is clear to auscultation, no wheezing or crackles. ABDOMEN: Soft, nontender, nondistended, normoactive bowel sounds. No palpable organomegaly. MUSCULOSKELETAL: No joint swelling or deformity. EXTREMITIES: No cyanosis, clubbing, or pedal edema. NEUROLOGICAL: Gross neurological examination did not reveal any focal deficits. SKIN: No rashes. Assessment and plan -Congestive heart failure, new onset heart failure probably viral myocarditis and cardiomyopathy: -Recent diagnosis of COVID infection -Ascites secondary to congestive heart failure -Alcohol abuse history in the past, not currently drinking alcohol -Acute renal failure probably prerenal azotemia from congestive heart failure and volume over load. Improved -History hypertension -Gases visual reflux disease DVT prophylaxis: Subcutaneous heparin GI prophylaxis: Plan Monitor overnight Telemetry Medication adjustments by cardiology Continue other supportive care Prognosis guarded Objective - Vital Signs Vital signs: Vital Signs Temp 98.4 F 05/28/21 12:00 Pulse 100 05/28/21 12:00 Resp 18 05/28/21 12:00 BP 149/93 05/28/21 12:00 Pulse Ox 96 05/28/21 12:00 Intake & Output 05/27/21 05/28/21 05/28/21 18:59 06:59 18:59 Intake Total 450 660 Balance 450 660 Weight 116.9 kg 115.1 kg Intake: Oral 450 660 Other: Voiding Method Toilet Urinal # Voids 5 2 1 - Labs CBC & Chem 7: 05/27/21 04:17 05/28/21 06:42 Labs: Abnormal Lab Results - Last 24 Hours (Table) 05/27/21 05/28/21 Range/Units 09:46 06:42 Sodium 135 L (137-145) mmol/L Glucose 130 H (74-99) mg/dL HDL Cholesterol 34.50 L (40.00-60.00) mg/dL Assessment and Plan Time with Patient: Less than 30
[2021-05-28] MEDS: METOPROLOL TARTRATE 25 MG TAB PO SCH (20:06)
[2021-05-28] MEDS: HEPARIN SODIUM,PORCINE/PF 5,000 UNIT/0.5 ML SYRINGE SQ SCH (20:06)
[2021-05-29 07:50] LABS: Calcium 9.1 mg/dL (8.4-10.2); Potassium 4.9 mmol/L (3.5-5.1)
[2021-05-29] MEDS ORDERED: METOPROLOL SUCCINATE (ER) 50 MG TAB.ER.24H PO SCH (10:00)
[2021-05-29] MEDS: HEPARIN SODIUM,PORCINE/PF 5,000 UNIT/0.5 ML SYRINGE SQ SCH ×2 (11:21→20:21)
[2021-05-29] MEDS: FAMOTIDINE 20 MG TAB PO SCH (11:22)
[2021-05-29] MEDS: FUROSEMIDE 40 MG TAB PO SCH (11:22)
[2021-05-29] MEDS: METOPROLOL TARTRATE 25 MG TAB PO SCH (11:23)
[2021-05-29] MEDS: SACUBITRIL/VALSARTAN 24 MG-26 MG TABLET PO SCH (11:23)
[2021-05-29] MEDS: SACUBITRIL/VALSARTAN 49 MG-51 MG TABLET PO SCH ×2 (11:27→20:21)
--- NOTE | 2021-05-29 12:38 | P.PN ---
Subjective Progress Note Date: 05/29/21 HISTORY OF PRESENT ILLNESS: This is a 40-year-old male with a past medical history significant for hypertension and former alcohol use (quit about 3 or 4 years ago). 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 He was seen by Dr. Ash back in 2015. We have been asked to see the patient in consultation for CHF. Patient examined at the bedside. Patient presented to the hospital with a chief complaint of SOB. Patient states he had covid about 3 weeks ago. He has been feeling SOB since about 4 days prior to being diagnosed with Covid. Patient was found to be in CHF and was started on IV lasix. He denies chest pain or pressure. The patient reports a history of hypertension and states he was prescribed losartan and amlodipine an outpatient basis but has not been taking it up for approximately 3 weeks as he ran out of medications and is in the process of changing his primary care physician. * EKG reveals sinus mechanism with no signs of acute ischemia * Chest xray cardiomegaly which appears appears new compared to old exam. No heart failure seen. * Laboratory data: WBC 7.3. Hemoglobin 16.3. Platelet count 219. Sodium 139. Potassium 4.5. BUN 21. Creatinine 1.27. Troponin negative 3. ProBNP 3430. TSH 2.280. * Current home cardiac medications include losartan and amlodipine, unknown doses, patient has not been taking medications for at least 3 weeks * Echocardiogram completed revealing ejection fraction less than 20%, mild mitral regurgitation, [id number] tricuspid regurgitation, mild pulmonary hypertension, small generalized pericardial effusion. * Patient had an echocardiogram completed in 2016 revealing normal ejection fraction of 55-60% * Chest CTA: Negative for pulmonary embolism. Moderate bilateral pleural effusions. * Patient underwent cardiac catheterization and December 2015 revealing normal coronary arteries. 05/28/2021 Patient examined this morning at the bedside. Patient denies chest pain or pressure. He reports improvement in his shortness of breath. Blood pressure 136/92. Heart rate is in the 90s. He is on room air with oxygen saturations greater than 92%. 05/29/2021 Patient examined this morning at the bedside. Patient denies chest pain or pressure. He denies shortness of breath. He is able to lay flat in bed without any difficulty breathing. Blood pressure 124/89. Heart rate is in the 90s. PHYSICAL EXAM: VITAL SIGNS: Reviewed. GENERAL: Well-developed in no acute distress. HEENT: Head is normocephalic. Pupils are equal, round. Sclerae anicteric. Mucous membranes of the mouth are moist. Neck supple. No JVD or thyromegaly LUNGS: Respirations even and unlabored. Lungs diminished HEART: Regular rate and rhythm. S1 and S2 heard. ABDOMEN: Soft. Nondistended. Nontender. EXTREMITIES: Normal range of motion. No clubbing or cyanosis. Peripheral pulses intact. No lower extremity edema NEUROLOGIC: Awake and alert. Oriented x 3. ASSESSMENT: Shortness of breath Recent diagnosis of Covid New onset cardiomyopathy, ejection fraction less than 20% Moderate bilateral pleural effusions Acute kidney injury Hypertension Medication noncompliance PLAN: Continue current cardiac medications Change metoprolol to metoprolol succinate 50 mg daily starting today at 2 PM Increase Entresto to 49-51mg BID Continue to monitor blood pressure Will possibly add Aldactone tomorrow pending blood pressure Further recommendations pending patient course Nurse practitioner note has been reviewed by physician. Signing provider agrees with the documented findings, assessment, and plan of care. Objective - Vital Signs Vital signs: Vital Signs Temp 97.8 F 05/29/21 12:00 Pulse 101 H 05/29/21 12:00 Resp 18 05/29/21 12:30 BP 124/89 05/29/21 12:00 Pulse Ox 97 05/29/21 12:00 Intake & Output 05/28/21 05/29/21 05/29/21 18:59 06:59 18:59 Intake Total 840 118 Balance 840 118 Weight 113.5 kg Intake: Oral 840 118 Other: Voiding Method Toilet Urinal # Voids 1 3 - Labs CBC & Chem 7: 05/27/21 04:17 05/29/21 06:58 Labs: Abnormal Lab Results - Last 24 Hours (Table) 05/29/21 Range/Units 06:58 Sodium 135 L (137-145) mmol/L Glucose 100 H (74-99) mg/dL
[2021-05-29] MEDS: METOPROLOL SUCCINATE (ER) 50 MG TAB.ER.24H PO SCH (13:14)
--- NOTE | 2021-05-29 13:53 | P.PN ---
Subjective Patient is a pleasant 40-year-old male came in with compensative shortness of breath orthopnea and paroxysmal nocturnal dyspnea of which are going on for about a month. Patient shortness of breath progressively worsened. Patient had COVID-19 infection which is predominantly GI symptoms in mid February. Patient did not require hospital physician at the time. Patient is not vaccinated for COVID-19. Patient did have history of alcohol abuse in the past which he quit about any ago patient used to drink a 12 pack beer every day for many years. Does have family history of coronary artery disease, premature coronary artery disease in father and second degree relatives had coronary artery disease history as well. Patient baseline creatinine within normal limits present creatinine is 1.27. Patient was given Lasix, with a complete resolution of his shortness of breath. Patient had multiple imaging studies including CT angios the chest abdominal pelvic CT in ER which is significant for pulmonary edema and ascites. Echo was obtained today which showed EF of less than 20% with global hypokinesis. Patient also having cough without any sputum production 05/28/2021 Patient evaluated today, no acute events over night. Stable on current medications, entresto, lasix, and metoprolol. Echocardiogram shows an EF of <20% with severe global hypokinesis of left ventricle, mild to moderate tricuspid regurgitation, pulmonary hypertension, small generalized pericardial effusion present. Patient will be monitored overnight by cardiology with further medication adjustments as needed. Currently patient denies any chest pain, chest pressure, palpitations. Denies any cough or shortness of breath. Denies any dizziness or lightheadedness. Most recent echo was in 2016. Vitals stable today. Sodium 135, magnesium 1.9. 05/29/2021 Because of mild worsening of creatinine and cardiology is increasing the dose of Entresto and beta swati and cardiology is recommending monitoring his kidney function and his vitals tonight before discharge tomorrow. Cardiology have to decide about the LifeVest as well. Constitutional: Denied any fatigue denied any fever. Cardio vascular: denied any chest pain, palpitations Gastrointestinal denied any nausea vomiting Pulmonary: Denied any shortness of breath cough Neurologic denied any new focal deficits All inpatient medications were reviewed and appropriate changes in these medications as dictated in the interval history and assessment and plan. Review of Systems Constitutional: Denied any fatigue denied any fever. Cardio vascular: denied any chest pain, palpitations Gastrointestinal: denied any nausea, vomiting, diarrhea Pulmonary: Denied any shortness of breath cough Neurologic denied any new focal deficits All inpatient medications were reviewed and appropriate changes in these medications as dictated in the interval history and assessment and plan. PHYSICAL EXAMINATION: GENERAL: The patient is alert and oriented x3, not in any acute distress. Well developed, well nourished. HEENT: Pupils are round and equally reacting to light. EOMI. No scleral icterus. No conjunctival pallor. Normocephalic, atraumatic. No pharyngeal erythema. No thyromegaly. CARDIOVASCULAR: S1 and S2 present. No murmurs, rubs, or gallops. PULMONARY: Chest is clear to auscultation, no wheezing or crackles. ABDOMEN: Soft, nontender, nondistended, normoactive bowel sounds. No palpable organomegaly. MUSCULOSKELETAL: No joint swelling or deformity. EXTREMITIES: No cyanosis, clubbing, or pedal edema. NEUROLOGICAL: Gross neurological examination did not reveal any focal deficits. SKIN: No rashes. Assessment and plan -Congestive heart failure, new onset heart failure probably viral myocarditis and cardiomyopathy: Patient is presently on above-mentioned medications, beta swati, entresto which are being optimized at this time. -Recent diagnosis of COVID infection -Ascites secondary to congestive heart failure -Alcohol abuse history in the past, not currently drinking alcohol -Acute renal failure probably prerenal azotemia from congestive heart failure and volume over load. Improved -History hypertension -Gastroesophageal reflux disease DVT prophylaxis: Subcutaneous heparin GI prophylaxis: Objective - Vital Signs Vital signs: Vital Signs Temp 97.8 F 05/29/21 12:00 Pulse 101 H 05/29/21 12:00 Resp 18 05/29/21 12:30 BP 124/89 05/29/21 12:00 Pulse Ox 97 05/29/21 12:00 Intake & Output 05/28/21 05/29/21 05/29/21 18:59 06:59 18:59 Intake Total 840 118 Balance 840 118 Weight 113.5 kg Intake: Oral 840 118 Other: Voiding Method Toilet Urinal # Voids 1 3 - Labs CBC & Chem 7: 05/27/21 04:17 05/29/21 06:58 Labs: Abnormal Lab Results - Last 24 Hours (Table) 05/29/21 Range/Units 06:58 Sodium 135 L (137-145) mmol/L Glucose 100 H (74-99) mg/dL
[2021-05-30 07:42] LABS: African American GFR (CKD) >90 (>60 ml/min/1.73 sqM); Anion Gap 5 mmol/L; Blood Urea Nitrogen 16 mg/dL (9-20); Calcium 8.8 mg/dL (8.4-10.2); Carbon Dioxide 27 mmol/L (22-30); Chloride 104 mmol/L (98-107); Glucose 111 mg/dL (74-99); Magnesium 2.2 mg/dL (1.6-2.3); Non-African American GFR(CKD) 87 (>60 ml/min/1.73 sqM); Potassium 4.7 mmol/L (3.5-5.1); Sodium 136 mmol/L (137-145)
[2021-05-30] MEDS: FUROSEMIDE 40 MG TAB PO SCH (08:51)
[2021-05-30] MEDS: FAMOTIDINE 20 MG TAB PO SCH (08:51)
[2021-05-30] MEDS: SACUBITRIL/VALSARTAN 49 MG-51 MG TABLET PO SCH (08:51)
[2021-05-30] MEDS: HEPARIN SODIUM,PORCINE/PF 5,000 UNIT/0.5 ML SYRINGE SQ SCH (08:51)
[2021-05-30] MEDS ORDERED: SPIRONOLACTONE 25 MG TAB PO SCH (09:15)
[2021-05-30 09:17] VITALS: TEMP 97.4
--- NOTE | 2021-05-30 12:30 | P.PN ---
Subjective Progress Note Date: 05/30/21 HISTORY OF PRESENT ILLNESS: This is a 40-year-old male with a past medical history significant for hypertension and former alcohol use (quit about 3 or 4 years ago). 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 He was seen by Dr. Ash back in 2015. We have been asked to see the patient in consultation for CHF. Patient examined at the bedside. Patient presented to the hospital with a chief complaint of SOB. Patient states he had covid about 3 weeks ago. He has been feeling SOB since about 4 days prior to being diagnosed with Covid. Patient was found to be in CHF and was started on IV lasix. He denies chest pain or pressure. The patient reports a history of hypertension and states he was prescribed losartan and amlodipine an outpatient basis but has not been taking it up for approximately 3 weeks as he ran out of medications and is in the process of changing his primary care physician. * EKG reveals sinus mechanism with no signs of acute ischemia * Chest xray cardiomegaly which appears appears new compared to old exam. No heart failure seen. * Laboratory data: WBC 7.3. Hemoglobin 16.3. Platelet count 219. Sodium 139. Potassium 4.5. BUN 21. Creatinine 1.27. Troponin negative 3. ProBNP 3430. TSH 2.280. * Current home cardiac medications include losartan and amlodipine, unknown doses, patient has not been taking medications for at least 3 weeks * Echocardiogram completed revealing ejection fraction less than 20%, mild mitral regurgitation, [id number] tricuspid regurgitation, mild pulmonary hypertension, small generalized pericardial effusion. * Patient had an echocardiogram completed in 2016 revealing normal ejection fraction of 55-60% * Chest CTA: Negative for pulmonary embolism. Moderate bilateral pleural effusions. * Patient underwent cardiac catheterization and December 2015 revealing normal coronary arteries. 05/28/2021 Patient examined this morning at the bedside. Patient denies chest pain or pressure. He reports improvement in his shortness of breath. Blood pressure 136/92. Heart rate is in the 90s. He is on room air with oxygen saturations greater than 92%. 05/29/2021 Patient examined this morning at the bedside. Patient denies chest pain or pressure. He denies shortness of breath. He is able to lay flat in bed without any difficulty breathing. Blood pressure 124/89. Heart rate is in the 90s. 05/30/2021 Patient examined this morning at the bedside. Patient denies chest pain or pressure. He denies shortness of breath. Vital signs are stable. He denies any dizziness or lightheadedness. PHYSICAL EXAM: VITAL SIGNS: Reviewed. GENERAL: Well-developed in no acute distress. HEENT: Head is normocephalic. Pupils are equal, round. Sclerae anicteric. Mucous membranes of the mouth are moist. Neck supple. No JVD or thyromegaly LUNGS: Respirations even and unlabored. Lungs diminished HEART: Regular rate and rhythm. S1 and S2 heard. ABDOMEN: Soft. Nondistended. Nontender. EXTREMITIES: Normal range of motion. No clubbing or cyanosis. Peripheral pulses intact. No lower extremity edema NEUROLOGIC: Awake and alert. Oriented x 3. ASSESSMENT: Shortness of breath Recent diagnosis of Covid New onset cardiomyopathy, ejection fraction less than 20% Moderate bilateral pleural effusions Acute kidney injury Hypertension Medication noncompliance PLAN: Continue current cardiac medications Aldactone 25 mg daily Patient may be discharged home today from a cardiac standpoint and follow up in office Nurse practitioner note has been reviewed by physician. Signing provider agrees with the documented findings, assessment, and plan of care. Objective - Vital Signs Vital signs: Vital Signs Temp 97.4 F L 05/30/21 08:00 Pulse 93 05/30/21 10:51 Resp 17 05/30/21 10:51 BP 121/87 05/30/21 10:51 Pulse Ox 98 05/30/21 10:51 Intake & Output 05/29/21 05/30/21 05/30/21 18:59 06:59 18:59 Intake Total 118 260 Balance 118 260 Weight 113.5 kg Intake: Oral 118 260 Other: # Voids 1 - Labs CBC & Chem 7: 05/27/21 04:17 05/30/21 06:56 Labs: Abnormal Lab Results - Last 24 Hours (Table) 05/30/21 Range/Units 06:56 Sodium 136 L (137-145) mmol/L Glucose 111 H (74-99) mg/dL
--- NOTE | 2021-05-30 13:25 | CDI ---
Documentation Clarification Form Date: 05/30/2021 12:49:25 PM From: Betty Brandon RN, CCDS Admit Date: 05/29/2021 04:09:00 PM Patient Name: Brooks Diaz Jr Visit Number: [id number] Discharge Date: ATTENTION: The Clinical Documentation Specialists (CDI) and [facility] Coding Staff appreciate your assistance in clarifying documentation. Please respond to the clarification below the line at the bottom and electronically sign. The CDI & [facility] Coding staff will review the response and follow-up if needed. Please note: Queries are made part of the Legal Health Record. If you have any questions, please contact the author of this message via ITS. Dr. Liz Obando Your patient has the documented diagnosis of unspecified CHF is the H/P and subsequent progress notes. Additional clarification is requested for the type and acuity of CHF. History/Risk Factors: GERD, Hypertension, Alcohol Clinical Indicators: 40-year-old male present with shortness of breath. Respiratory exam has respiratory distress, rales, accessory muscle use, decreased breath sounds, prolonged expiratory. 05/27 CXR: Moderate bilateral pleural effusion appear new. There is reflux of contrast into the inferior vena cava that is suggestive of congestive heart failure. VS/Pulse OX: 178/120 64 18 97.8 99 % RA 05/27: BNP: 3430 Echocardiogram Results: Overall left ventricular systolic function is severely impaired with, an EF <20 % 05/27 CXR: There is cardiomegaly which appears new compared to old exam. No heart failure Treatment: Telemetry Monitoring Toprol XL 50 mg po daily Aldactone 25 mg po daily Lasix 40 mg IV Q 12/HR, (05/27-05/28) Lasix 40 mg po Daily In your professional opinion, can you please clarify the [acuity and type] of CHF if known? [ ] Acute Systolic Heart Failure (reduced EF) [ x ] Acute on Chronic Systolic Heart Failure (reduced EF) [ ] Other, please specify [ ] Unable to determine (Template Last Revised: April 2020) MTDD
[2021-05-30] MEDS: METOPROLOL SUCCINATE (ER) 50 MG TAB.ER.24H PO SCH (14:39)
--- NOTE | 2021-05-30 15:35 | P.DS ---
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 Improved -History hypertension -History cardiac catheterization in 2016 which was clear -Gastroesophageal reflux disease -History severe obstructive sleep apnea with history of CPAP use, has seen Dr Moffett in the sleep center in the past -Obesity, BMI 33.9 Discharge Disposition Patient stable for discharge from a medical standpoint, cleared by cardiology will follow with Dr Gonzalez in the office. Hospital Course this is a pleasant 40-year-old male presents to the for evaluation of severe shortness of breath worse with exertion. Patient was recently diagnosed with bronchitis in a month ago and also positive for coronary virus, shortness of breath persists. Patient does not complain of any chest pain, chest pressure or palpitations. Blood pressure has been elevated and has been non compliant with medication over the last 2 years. patient will follow Dr. Sorenson in the primary care office after discharge as well as Dr. Gonzalez for cardiology. Past medical history significant for gastroesophageal reflux disease, hypertension, lymph enlargement chest, hiatal hernia, MRSA in 2018 to the shoulder and leg, never s moker, alcohol abuse in the past currently only with occasional use. Labs on admission show a sodium 139, potassium 4.5, BUN 21, creatinine 1.27, glucose 136,, BNP 3430, troponin levels negative 3, lipid panel within normal limits with HDL of 34.5, TSH 2.280, serum alcohol less than 10. Also with blood count panel within normal limits. A1C 6.0. Chest xray shows no cardiomegaly compared to old exam, no heart failure seen. chest CTA shows no evidence of pulmonary embolism with moderate bilateral pleural effusions is new compared to old exam, small pericardial effusion that is new compared to old exam, heart size is increased there is reflux of contrast into the inferior vena cava which is suggestive of congestive heart failure. Echocardiogram shows EF less than 20% with severe global hypokinesis of left ventricle, mild pulmonary hypertension, [id number] tricuspid regurgitation, mild mitral regurgitation, small generalized pericardial effusion present. Patient was evaluated by cardiology this admission and was started on oral lasix, entresto, Toprol XL and aldactone with significant improvement of symptoms. Discussion with patient the possibility of needing a lifevest in the future. Discussed with cardiology as well currently with no recommendations for lifevest prior to discharge. 05/30/2021 Today patient with no acute event overnight no current symptoms. Cleared by cardiology for discharge. Was started on aldactone today. Blood pressure stable at 121/87 with negative orthostatics. Afebrile, heart rate 93, 98% on room air. Will continue on current cardiac medications. Creatinine has normalized now 1.07, will follow and repeat outpatient in 2 to 3 days. Sodium today 136, potassium 4.7, glucose 111. Pt to follow with Dr Sorenson and Dr Gonzalez. Currently denying and chest pain, chest pressure, and states shortness of breath with exertion has improved. He is tolerating activity. lungs are clear, S1-S2 auscultated, abdomen soft nontender focal neurological exam is negative. at the bedside all questions answered. Activity limited until follow up with cardiology and PCP. Recommend heart healthy, low sodium diet. Please see medication reconciliation for a list of current medications. Thank you for allowing us to participate in the care of this patient. Patient Condition at Discharge: Fair Plan - Discharge Summary Discharge Rx Participant: Yes New Discharge Prescriptions: New Furosemide [Lasix] 40 mg PO DAILY #30 tab Spironolactone [Aldactone] 25 mg PO DAILY #30 tab Sacubitril/Valsartan [Entresto 49 mg-51 mg Tablet] 1 each PO BID #60 tablet Metoprolol Succinate (ER) [Toprol Xl] 50 mg PO DAILY@1400 #30 tab Famotidine [Pepcid] 20 mg PO DAILY #30 tab Discharge Medication List Furosemide [Lasix] 40 mg PO DAILY #30 tab 05/29/21 [Rx] Famotidine [Pepcid] 20 mg PO DAILY #30 tab 05/30/21 [Rx] Metoprolol Succinate (ER) [Toprol Xl] 50 mg PO DAILY@1400 #30 tab 05/30/21 [Rx] Sacubitril/Valsartan [Entresto 49 mg-51 mg Tablet] 1 each PO BID #60 tablet 05/30/21 [Rx] Spironolactone [Aldactone] 25 mg PO DAILY #30 tab 05/30/21 [Rx] Follow up Appointment(s)/Referral(s): Aden Gonzalez MD [STAFF PHYSICIAN] - 1 Week (office will call you to schedule appointment. ) Terry Sorenson MD [REFERRING] - 3 Days (message left with office to call you to schedule follow up. if you do not hear from them today or tomorrow morning call them to schedule follow up.) Ambulatory/Diagnostic Orders: Basic Metabolic Panel [LAB.AMB] Time Frame: 3 Days, Location: None Selected Patient Instructions/Handouts: Heart Failure (DC), Hypertensive Crisis (DC) Activity/Diet/Wound Care/Special Instructions: Absolutely no alcohol intake, complete abstinence New patient with Dr Sorenson for primary care Discharge Disposition: HOME SELF-CARE
[2021-05-30 15:42] VITALS: BP 127/90; PULSE 55; RESP 16
== END 2021-05-30 15:06 | disposition home or self-care (01) | DRG 291 ==
LOC: EC 03:34 → 3SCARD 06:15 → OBSVTOIN 05-29 16:09
PROVIDERS: ADMIT Hospitalist; ATTEND Hospitalist
DX: I11.0 Hypertensive heart disease with heart failure (principal); I40.0 Infective myocarditis; I50.23 Acute on chronic systolic (congestive) heart failure; I16.1 Hypertensive emergency; N17.9 Acute kidney failure, unspecified; R18.8 Other ascites; I42.9 Cardiomyopathy, unspecified; K44.9 Diaphragmatic hernia without obstruction or gangrene; K21.9 Gastro-esophageal reflux disease without esophagitis; I07.1 Rheumatic tricuspid insufficiency; G47.33 Obstructive sleep apnea (adult) (pediatric); F41.9 Anxiety disorder, unspecified; E66.9 Obesity, unspecified; Z68.33 Body mass index [BMI] 33.0-33.9, adult; Z86.16 Personal history of COVID-19; Z86.14 Personal history of Methicillin resistant Staphylococcus aureus infection; Z87.891 Personal history of nicotine dependence; Z91.14 Patient's other noncompliance with medication regimen; Z82.49 Family history of ischemic heart disease and other diseases of the circulatory system; Z82.5 Family history of asthma and other chronic lower respiratory diseases
CPT/HCPCS: 36415; 71045; 71275; 74177; 80048; 80053; 80061; 80320; 83036; 83605; 83735; 83880; 84443; 84484; 85025; 85610; 85730; 93005; 93306; 94640; 96361; 96374; 96375; 99291

== ENCOUNTER → 2021-06-03 | Outpatient (CLI) | payer BC ==
[2021-06-03 18:34] LABS: Anion Gap 13.8 mmol/L (10.00-18.00); BUN/Creat Ratio 13.78 Ratio (12.00-20.00); Blood Urea Nitrogen 16.4 mg/dL (9.0-27.0); Calcium 9.8 mg/dL (8.7-10.3); Carbon Dioxide 18.5 mmol/L (20.0-27.5); Potassium 5.1 mmol/L (3.5-5.5)
== END | disposition home or self-care (01) ==
LOC: LABWHC1 13:51
PROVIDERS: ATTEND Internal Medicine
DX: Z79.01 Long term (current) use of anticoagulants (principal)
CPT/HCPCS: 36415; 80048

== ENCOUNTER → 2021-07-26 | Outpatient (CLI) | payer BC ==
[2021-07-26 23:08] LABS: Basophils % (A) 1.1 %; Eosinophils # (A) 0.27 X 10*3/uL (0.04-0.35); HCT 49.8 % (39.6-50.0); HGB 16.3 g/dL (13.0-17.0); Immature Grans, Automated 0.7 %; Lymphocytes # (A) 2.17 X 10*3/uL (0.90-5.00); Lymphocytes % (A) 24.3 %; MCH 27.9 pg (27.0-32.0); MCHC 32.7 g/dL (32.0-37.0); MCV 85.3 fL (80.0-97.0); Mean Platelet Volume 11.3 fL (9.5-12.2); Monocytes # (A) 0.97 X 10*3/uL (0.20-1.00); Monocytes % (A) 10.9 %; NRBC Per 100 WBC 0 /100 WBCS (0.0-0.0); Neutrophils # (A) 5.35 X 10*3/uL (1.80-7.70); Platelet Count 155 X 10*3/uL (140-440); RBC 5.84 X 10*6/uL (4.40-5.60); RDW 14.5 % (11.5-14.5); WBC 8.92 X 10*3/uL (4.50-10.00)
[2021-07-26 23:36] LABS: ALT 24 U/L (10-49); AST 15 U/L (14-35); Albumin 4.5 g/dL (3.8-4.9); Albumin/Globulin Ratio 1.94 (1.60-3.17); Alkaline Phosphatase 83 U/L (41-126); BUN/Creat Ratio 18.52 Ratio (12.00-20.00); Bilirubin, Conjugated <0.20 mg/dL (0.20-0.40); Blood Urea Nitrogen 23.7 mg/dL (9.0-27.0); Calcium 9.6 mg/dL (8.7-10.3); Carbon Dioxide 25.4 mmol/L (20.0-27.5); Chloride 100 mmol/L (96-109); Globulin 2.3 g/dL (1.6-3.3); Glucose 104 mg/dL (70-110); Non-African American GFR(CKD) 69.1 (60.0-200.0); Potassium 4.5 mmol/L (3.5-5.5); Sodium 137 mmol/L (135-145); Total Protein 6.8 g/dL (6.2-8.2)
[2021-07-27 01:35] LABS: Appearance,Urine Clear (Clear); Bilirubin,Urine Negative (Negative); Blood,Urine Negative (Negative); Color,Urine Yellow (Yellow); Ketones,Urine Trace mg/dL (Negative); Nitrite,Urine Negative (Negative); PH, Urine 5.5 (5.0-8.0); Specific Gravity,Urine 1.027 (1.001-1.030); Urobilinogen,Urine 0.2 (0.2,1.0)
== END | disposition home or self-care (01) ==
LOC: LABWHC1 15:18
PROVIDERS: ATTEND Registered Nurse
DX: D45 Polycythemia vera (principal)
CPT/HCPCS: 36415; 80053; 81003; 82248; 82668; 85025

== ENCOUNTER → 2022-01-01 | Outpatient (CLI) | payer BC | END | disposition home or self-care (01) | LOC: LABWHC1 07:38 | PROVIDERS: ATTEND Family Medicine | DX: Z12.5 Encounter for screening for malignant neoplasm of prostate (principal) | CPT/HCPCS: 36415; 84153 ==

== ENCOUNTER 2022-01-09 10:06 | Emergency (ER) | payer BC ==
--- NOTE | 2022-01-09 11:57 | XR ---
EXAMINATION TYPE: XR chest 2V DATE OF EXAM: 01/09/2022 COMPARISON: 05/27/2021 TECHNIQUE: PA and lateral views submitted. HISTORY: Cough FINDINGS: The lungs are clear and there is no pneumothorax, pleural effusion, or focal pneumonia. Heart size normal. No overt failure. Mild hyperinflation. Hypertrophic change of the spine. IMPRESSION: 1. No acute process.
[2022-01-09 12:28] LABS: Basophils % (A) 1 %; Eosinophils # (A) 0.2 k/uL (0-0.7); Eosinophils % (A) 2 %; HCT 52.3 % (39.0-53.0); HGB 17.7 gm/dL (13.0-17.5); Lymphocytes # (A) 1.7 k/uL (1.0-4.8); Lymphocytes % (A) 19 %; MCH 30.3 pg (25.0-35.0); MCHC 33.8 g/dL (31.0-37.0); MCV 89.4 fL (80.0-100.0); Mean Platelet Volume 9.2; Monocytes # (A) 0.4 k/uL (0-1.0); Monocytes % (A) 4 %; Neutrophils # (A) 6.8 k/uL (1.3-7.7); Neutrophils % (A) 73 %; Platelet Count 157 k/uL (150-450); RBC 5.84 m/uL (4.30-5.90); WBC 9.3 k/uL (3.8-10.6)
[2022-01-09 12:38] LABS: Partial Thromboplastin Time 23.1 sec (22.0-30.0); Prothrombin Time 10.5 sec (9.0-12.0)
[2022-01-09 13:03] LABS: ALT 23 U/L (4-49); AST 17 U/L (17-59); African American GFR (CKD) >90 (>60 ml/min/1.73 sqM); Albumin 4.9 g/dL (3.5-5.0); Alkaline Phosphatase 81 U/L (38-126); Anion Gap 14 mmol/L; Blood Urea Nitrogen 18 mg/dL (9-20); Calcium 9.4 mg/dL (8.4-10.2); Carbon Dioxide 25 mmol/L (22-30); Chloride 100 mmol/L (98-107); Glucose 109 mg/dL (74-99); Non-African American GFR(CKD) >90 (>60 ml/min/1.73 sqM); Potassium 3.9 mmol/L (3.5-5.1); Sodium 139 mmol/L (137-145); Total Bilirubin 0.5 mg/dL (0.2-1.3); Total Protein 7.8 g/dL (6.3-8.2)
--- NOTE | 2022-01-09 14:29 | ED ---
General Adult HPI - General Chief complaint: Weakness Stated complaint: Weakness Time Seen by Provider: 01/09/22 13:55 Source: patient Mode of arrival: ambulatory Limitations: no limitations - History of Present Illness Initial comments: Dictation was produced using [employer] dictation software. please excuse any grammatical, word or spelling errors. Chief Complaint: 41-year-old male presents emergency department for weakness History of Present Illness: Patient is a 41-year-old male presents emergency department for generalized weakness he allegedly has a history of heart failure. Patient states his been feeling weak for the last 4-5 days. Patient denies any other symptoms whatsoever. No chest pain or belly pain. No shortness of breath. No nausea vomiting or constitutional symptoms. The ROS documented in this emergency department record has been reviewed and confirmed by me. Those systems with pertinent positive or negative responses have been documented in the HPI. All other systems are other negative and/or noncontributory. PHYSICAL EXAM: General Impression: Alert and oriented x3, not in acute distress HEENT: Normocephalic atraumatic, extra-ocular movements intact, pupils equal and reactive to light bilaterally, mucous membranes moist. Cardiovascular: Heart regular rate and rhythm Chest: Able to complete full sentences, no retractions, no tachypnea Abdomen: abdomen soft, non-tender, non-distended, no organomegaly Musculoskeletal: Pulses present and equal in all extremities, no peripheral edema Motor: no focal deficits noted Neurological: CN II-XII grossly intact, no focal motor or sensory deficits noted Skin: Intact with no visualized rashes Psych: Normal affect and mood ED course: 41-year-old male presents emergency department for 4-5 days of generalized weakness. Vital signs upon arrival are within acceptable limits. Patient's well-appearing at bedside. Physical examination is benign. Labs and imaging was ordered by triage nurse per HPI protocol. Chest x-ray is unremarkable. CBC, coag panel metabolic panel is unremarkable. Troponin is negative. Laboratory evaluation obtained. CBC unremarkable. Coag panel negative. Metabolic panel within acceptable limits. 4 panel by PCR is negative. Chest x- ray is nonacute. Patient observed in emergency department for approximately 6 hours. Reevaluation at bedside at 4:15 PM found to be stable medical condition. This points unclear was causing patient's symptoms. Doesn't appear to have any localizing symptoms. He is well-appearing at the bedside. Patient has no high- risk features. He'll be discharged. Advised up with primary care doctor. EKG interpretation: Ventricular rate 54, sinus bradycardia,. 172, QS 106, QTC 390. No WI prolongation, no QTC prolongation, no ST or T-wave changes noted. E Overall, this EKG is unremarkable - Related Data Previous Rx's Medication Instructions Recorded Furosemide [Lasix] 40 mg PO DAILY #30 tab 05/29/21 Famotidine [Pepcid] 20 mg PO DAILY #30 tab 05/30/21 Metoprolol Succinate (ER) [Toprol 50 mg PO DAILY@1400 #30 tab 05/30/21 Xl] Sacubitril/Valsartan [Entresto 49 1 each PO BID #60 tablet 05/30/21 mg-51 mg Tablet] Spironolactone [Aldactone] 25 mg PO DAILY #30 tab 05/30/21 Allergies Allergy/AdvReac Type Severity Reaction Status Date / Time No Known Allergies Allergy Verified 01/09/22 10:37 Review of Systems ROS Statement: Those systems with pertinent positive or pertinent negative responses have been documented in the HPI. ROS Other: All systems not noted in ROS Statement are negative. Past Medical History Past Medical History: Heart Failure, GERD/Reflux, Hypertension Additional Past Medical History / Comment(s): lymph node enlargement in chest, kidney cyst, hiatal hernia History of Any Multi-Drug Resistant Organisms: MRSA Date of last positivie culture/infection: 2007 MDRO Source:: shouler armpit and leg Past Surgical History: Ear Surgery, Tonsillectomy Additional Past Surgical History / Comment(s): mastoid bone, pe tubes, right foot Past Anesthesia/Blood Transfusion Reactions: No Reported Reaction Past Psychological History: Anxiety Smoking Status: Never smoker Past Alcohol Use History: Occasional Past Drug Use History: None Reported - Past Family History Mother Family Medical History: Asthma, GERD/Reflux, Hypertension, Skin Disorder Additional Family Medical History / Comment(s): psoriasis,hiatal hernia,enviromental triggered asthma Father History Unknown: Yes Additional Family Medical History / Comment(s): good health General Exam Limitations: no limitations Course Vital Signs 01/09/22 10:35 Temperature 98.4 F Pulse Rate 83 Respiratory 20 Rate Blood Pressure 122/88 O2 Sat by Pulse 99 Oximetry Medical Decision Making - Lab Data Result diagrams: 01/09/22 12:01/09/22 12:01 Lab Results 01/09/22 01/09/22 01/09/22 Range/Units 12: 12: 12:01 WBC 9.3 (3.8-10.6) k/uL RBC 5.84 (4.30-5.90) m/uL Hgb 17.7 H (13.0-17.5) gm/dL Hct 52.3 (39.0-53.0) % MCV 89.4 (80.0-100.0) fL MCH 30.3 (25.0-35.0) pg MCHC 33.8 (31.0-37.0) g/dL RDW 13.0 (11.5-15.5) % Plt Count 157 (150-450) k/uL MPV 9.2 Neutrophils % 73 % Lymphocytes % 19 % Monocytes % 4 % Eosinophils % 2 % Basophils % 1 % Neutrophils # 6.8 (1.3-7.7) k/uL Lymphocytes # 1.7 (1.0-4.8) k/uL Monocytes # 0.4 (0-1.0) k/uL Eosinophils # 0.2 (0-0.7) k/uL Basophils # 0.0 (0-0.2) k/uL PT 10.5 (9.0-12.0) sec INR 1.0 (<1.2) APTT 23.1 (22.0-30.0) sec Sodium 139 (137-145) mmol/L Potassium 3.9 (3.5-5.1) mmol/L Chloride 100 (98-107) mmol/L Carbon Dioxide 25 (22-30) mmol/L Anion Gap 14 mmol/L BUN 18 (9-20) mg/dL Creatinine 0.99 (0.66-1.25) mg/dL Est GFR (CKD-EPI)AfAm >90 (>60 ml/min/1.73 sqM) Est GFR (CKD-EPI)NonAf >90 (>60 ml/min/1.73 sqM) Glucose 109 H (74-99) mg/dL Calcium 9.4 (8.4-10.2) mg/dL Total Bilirubin 0.5 (0.2-1.3) mg/dL AST 17 (17-59) U/L ALT 23 (4-49) U/L Alkaline Phosphatase 81 (38-126) U/L Troponin I (0.000-0.034) ng/mL NT-Pro-B Natriuret Pep pg/mL Total Protein 7.8 (6.3-8.2) g/dL Albumin 4.9 (3.5-5.0) g/dL Influenza Type A (PCR) (Not Detectd) Influenza Type B (PCR) (Not Detectd) RSV (PCR) (Not Detectd) SARS-CoV-2 (PCR) (Not Detectd) 01/09/22 01/09/22 01/09/22 Range/Units 12:01 12:01 15:20 WBC (3.8-10.6) k/uL RBC (4.30-5.90) m/uL Hgb (13.0-17.5) gm/dL Hct (39.0-53.0) % MCV (80.0-100.0) fL MCH (25.0-35.0) pg MCHC (31.0-37.0) g/dL RDW (11.5-15.5) % Plt Count (150-450) k/uL MPV Neutrophils % % Lymphocytes % % Monocytes % % Eosinophils % % Basophils % % Neutrophils # (1.3-7.7) k/uL Lymphocytes # (1.0-4.8) k/uL Monocytes # (0-1.0) k/uL Eosinophils # (0-0.7) k/uL Basophils # (0-0.2) k/uL PT (9.0-12.0) sec INR (<1.2) APTT (22.0-30.0) sec Sodium (137-145) mmol/L Potassium (3.5-5.1) mmol/L Chloride (98-107) mmol/L Carbon Dioxide (22-30) mmol/L Anion Gap mmol/L BUN (9-20) mg/dL Creatinine (0.66-1.25) mg/dL Est GFR (CKD-EPI)AfAm (>60 ml/min/1.73 sqM) Est GFR (CKD-EPI)NonAf (>60 ml/min/1.73 sqM) Glucose (74-99) mg/dL Calcium (8.4-10.2) mg/dL Total Bilirubin (0.2-1.3) mg/dL AST (17-59) U/L ALT (4-49) U/L Alkaline Phosphatase (38-126) U/L Troponin I <0.012 (0.000-0.034) ng/mL NT-Pro-B Natriuret Pep 19 pg/mL Total Protein (6.3-8.2) g/dL Albumin (3.5-5.0) g/dL Influenza Type A (PCR) Not Detected (Not Detectd) Influenza Type B (PCR) Not Detected (Not Detectd) RSV (PCR) Not Detected (Not Detectd) SARS-CoV-2 (PCR) Not Detected (Not Detectd) Disposition Clinical Impression: Weakness Disposition: HOME SELF-CARE Condition: Good Instructions (If sedation given, give patient instructions): Weakness (ED) Is patient prescribed a controlled substance at d/c from ED?: No Referrals: Terry Sorenson MD [Primary Care Provider] - 1-2 days Time of Disposition: 16:19
[2022-01-09 16:30] VITALS: BP 110/66; PULSE 64; RESP 18; TEMP 98.7
== END 2022-01-09 16:30 | disposition home or self-care (01) ==
LOC: EC 10:06
DX: R53.1 Weakness (principal); I11.0 Hypertensive heart disease with heart failure; I50.9 Heart failure, unspecified; K21.9 Gastro-esophageal reflux disease without esophagitis; Z20.822 Contact with and (suspected) exposure to COVID-19; Z79.899 Other long term (current) drug therapy
CPT/HCPCS: 36415; 71046; 80053; 83880; 84484; 85025; 85610; 85730; 87636; 93005; 99285

== ENCOUNTER → 2022-10-06 | Outpatient (CLI) | payer BC ==
[2022-10-07 02:28] LABS: Basophils # (A) 0.05 X 10*3/uL (0.00-0.10); Basophils % (A) 0.6 %; Eosinophils # (A) 0.13 X 10*3/uL (0.04-0.35); Eosinophils % (A) 1.7 %; HCT 48.9 % (39.6-50.0); HGB 15.7 d/dL (12.0-15.0); Lymphocytes # (A) 2.15 X 10*3/uL (0.90-5.00); Lymphocytes % (A) 27.9 %; MCH 29.3 pg (27.0-32.0); MCHC 32.1 d/dL (32.0-37.0); MCV 91.2 FL (80.0-97.0); Mean Platelet Volume 12.1 FL (9.5-12.2); Monocytes # (A) 0.74 X 10*3/uL (0.20-1.00); Monocytes % (A) 9.6 %; NRBC Per 100 WBC 0 X 10*3/uL (0.00-0.01); Neutrophils % (A) 59.8 %; Platelet Count 155 X 10*3/uL (140-440); RBC 5.36 X 10*6/uL (4.40-5.60); RDW 13.4 % (11.5-14.5)
[2022-10-07 02:57] LABS: ALT 16 U/L (10-49); AST 13 U/L (14-35); Albumin 4.6 d/dL (3.8-4.9); Albumin/Globulin Ratio 2.19 Ratio (1.60-3.17); Alkaline Phosphatase 68 U/L (41-126); Blood Urea Nitrogen 21.7 mg/dL (9.0-27.0); Calcium 9.9 mg/dL (8.7-10.3); Carbon Dioxide 26.5 mmol/L (21.6-31.8); Chloride 103 mmol/L (96-109); Chol/HDL Ratio 3.54 Ratio; Globulin 2.1 d/dL (1.6-3.3); Glucose 85 mg/dL (70-110); LDL Cholesterol,Calculated 92.6 mg/dL (0.0-131.0); Potassium 4.5 mmol/L (3.5-5.5); Sodium 141 mmol/L (135-145); Total Bilirubin 0.5 mg/dL (0.3-1.2); Total Protein 6.7 d/dL (6.2-8.2); VLDL Calculation 15.74 mg/dL (5.00-40.00)
== END | disposition home or self-care (01) ==
LOC: LABWHC1 12:37
PROVIDERS: ATTEND Family Medicine
DX: Z00.00 Encounter for general adult medical examination without abnormal findings (principal); Z12.5 Encounter for screening for malignant neoplasm of prostate; I10 Essential (primary) hypertension; E55.9 Vitamin D deficiency, unspecified
CPT/HCPCS: 80061; 80053; 84443; 85025; 82306; 36415; G0103

== ENCOUNTER 2022-12-02 05:36 | Emergency (ER) | payer BC ==
[2022-12-02 05:43] VITALS: BP 128/82; PULSE 68; RESP 18; TEMP 98.1
[2022-12-02] MEDS ORDERED: PROPARACAINE 0.5% OPHTH DROPS 15 ML BTL LEFT EYE STA (06:04)
[2022-12-02] MEDS ORDERED: FLUORESCEIN STRIPS 1 MG STRIP LEFT EYE ONE (06:04)
[2022-12-02] MEDS ORDERED: TOBRAMYCIN 0.3% OPHTH DROPS 5 ML BTL LEFT EYE STA (06:17)
--- NOTE | 2022-12-02 06:19 | ED ---
Eye Problem HPI - General Chief complaint: Eye Problems Stated complaint: Eye irritation Time Seen by Provider: 12/02/22 05:50 Source: patient, RN notes reviewed Mode of arrival: ambulatory Limitations: no limitations - History of Present Illness Initial comments: 42-year-old male presents emergency Department chief complaint left eye foreign body. Patient states is working on a car states that he believes he hasn't been his eye. He states he smoked locked up. His tetanus is up-to-date. Extensive denies any blurred vision denies any other associated symptoms. - Related Data Previous Rx's Medication Instructions Recorded Furosemide [Lasix] 40 mg PO DAILY #30 tab 05/29/21 Famotidine [Pepcid] 20 mg PO DAILY #30 tab 05/30/21 Metoprolol Succinate (ER) [Toprol 50 mg PO DAILY@1400 #30 tab 05/30/21 Xl] Sacubitril/Valsartan [Entresto 49 1 each PO BID #60 tablet 05/30/21 mg-51 mg Tablet] Spironolactone [Aldactone] 25 mg PO DAILY #30 tab 05/30/21 Allergies Allergy/AdvReac Type Severity Reaction Status Date / Time No Known Allergies Allergy Verified 12/02/22 05:44 Review of Systems ROS Statement: Those systems with pertinent positive or pertinent negative responses have been documented in the HPI. ROS Other: All systems not noted in ROS Statement are negative. Past Medical History Past Medical History: Heart Failure, GERD/Reflux, Hypertension Additional Past Medical History / Comment(s): lymph node enlargement in chest, kidney cyst, hiatal hernia History of Any Multi-Drug Resistant Organisms: MRSA Date of last positivie culture/infection: 2007 MDRO Source:: shouler armpit and leg Past Surgical History: Ear Surgery, Tonsillectomy Additional Past Surgical History / Comment(s): mastoid bone, pe tubes, right foot Past Anesthesia/Blood Transfusion Reactions: No Reported Reaction Past Psychological History: Anxiety Smoking Status: Never smoker Past Alcohol Use History: Occasional Past Drug Use History: None Reported - Past Family History Mother Family Medical History: Asthma, GERD/Reflux, Hypertension, Skin Disorder Additional Family Medical History / Comment(s): psoriasis,hiatal hernia,enviromental triggered asthma Father History Unknown: Yes Additional Family Medical History / Comment(s): good health General Exam Limitations: no limitations General appearance: alert, in no apparent distress Head exam: Present: atraumatic, normocephalic, normal inspection Eye exam: Present: PERRL, EOMI, conjunctival injection, other (Foreign body left eye). Absent: normal appearance, scleral icterus, periorbital swelling Pupils: Present: other (Fluorescein uptake a central cornea and in the 7 o'clock position) ENT exam: Present: normal exam, mucous membranes dry, mucous membranes moist Neck exam: Present: normal inspection. Absent: tenderness, meningismus, lymphadenopathy Course Vital Signs 12/02/22 05:42 Temperature 98.1 F Pulse Rate 68 Respiratory 18 Rate Blood Pressure 128/82 O2 Sat by Pulse 100 Oximetry Procedures - Forgein Body Removal Eye Site: Left Location in eye(s): Central cornea Anesthetic Used: Proparacaine Eye Exam Technique: Pulido Lamp, Fluorescein Foreign Body Suspected: Metal Forgein Body Removal Technique: Cotton Swab Remaining Debris: Yes Patient Tolerated: no complications Medical Decision Making - Medical Decision Making Was pt. sent in by a medical professional or institution (SYDNEY Shea, DESKTOP PUBLISHING OPERATOR, urgent care, hospital, or long term...) When possible be specific @ -No Did you speak to anyone other than the patient for history (EMS, parent, family, police, friend...)? What history was obtained from this source @ -No Did you review nursing and triage notes (agree or disagree)? Why? @ -I reviewed and agree with nursing and triage notes Were old charts reviewed (outside hosp., previous admission, EMS record, old EKG, old radiological studies, urgent care reports/EKG's, long term records)? Report findings @ -No old charts were reviewed Differential Diagnosis (chest pain, altered mental status, abdominal pain women, abdominal pain men, vaginal bleeding, weakness, fever, dyspnea, syncope, headache, dizziness, GI bleed, back pain, seizure, CVA, palpatations, mental health, musculoskeletal)? @ -Conjunctivitis, corneal abrasion, corneal ulcer, corneal foreign body EKG interpreted by me (3pts min.). @ -None X-rays interpreted by me (1pt min.). @ -None done CT interpreted by me (1pt min.). @ -None done U/S interpreted by me (1pt. min.). @ -None done What testing was considered but not performed or refused? (CT, X-rays, U/S, labs)? Why? @ -None What meds were considered but not given or refused? Why? @ -None Did you discuss the management of the patient with other professionals (professionals i.e. , PA, DESKTOP PUBLISHING OPERATOR, lab, RT, psych nurse, social media specialist, manager property, teacher, bank officer, manager marketing)? Give summary @ -No Was smoking cessation discussed for >3mins.? @ -No Was critical care preformed (if so, how long)? @ -No Were there social determinants of health that impacted care today? How? (Homelessness, low income, unemployed, alcoholism, drug addiction, transportation, low edu. Level, literacy, decrease access to med. care, fpc, rehab)? @ -No Was there de-escalation of care discussed even if they declined (Discuss DNR or withdrawal of care, Hospice)? DNR status @ -No What co-morbidities impacted this encounter? (DM, HTN, Smoking, COPD, CAD, Cancer, CVA, ARF, Chemo, Hep., AIDS, mental health diagnosis, sleep apnea, morbid obesity)? @ -None Was patient admitted / discharged? Hospital course, mention meds given and route, prescriptions, significant lab abnormalities, going to OR and other pertinent info. @ -[Discharged patient has corneal abrasion from corneal foreign body which was removed patient discharge on Tobrex eyedrops will follow-up with ophthalmology as needed patient is discharged Undiagnosed new problem with uncertain prognosis? @ -No Drug Therapy requiring intensive monitoring for toxicity (Heparin, Nitro, Insulin, Cardizem)? @ -No Were any procedures done? @ -No Diagnosis/symptom? @ -Corneal abrasion/foreign body Acute, or Chronic, or Acute on Chronic? @ -Acute Uncomplicated (without systemic symptoms) or Complicated (systemic symptoms)? @ -Uncomplicated Side effects of treatment? @ -No Exacerbation, Progression, or Severe Exacerbation? @ -No Poses a threat to life or bodily function? How? (Chest pain, [place], [place], pneumonia, PE, COPD, DKA, ARF, appy, cholecystitis, CVA, Diverticulitis, Homicidal, Suicidal, threat to staff... and all critical care pts) @ -No Disposition Clinical Impression: Foreign body of left cornea Disposition: HOME SELF-CARE Condition: Stable Instructions (If sedation given, give patient instructions): Eye Foreign Body (ED) Additional Instructions: Please return to the Emergency Department if symptoms worsen or any other concerns. Use Tobrex eyedrops 1 drop her/5 days Is patient prescribed a controlled substance at d/c from ED?: No Referrals: Terry Sorenson [Primary Care Provider] - 1-2 days Aron Garnett MD [STAFF PHYSICIAN] - 1-2 days Time of Disposition: 06:18
== END 2022-12-02 06:51 | disposition home or self-care (01) ==
LOC: EC 05:36
DX: T15.02XA Foreign body in cornea, left eye, initial encounter (principal); I11.0 Hypertensive heart disease with heart failure; I50.9 Heart failure, unspecified
CPT/HCPCS: 65222; 99283